=== PATIENT | female | born 1960 | race Caucasian/White ===

== ENCOUNTER 2023-07-06 10:21 | Emergency (ER) | payer OTHER, SELFPAY ==
--- NOTE | ~2023-07-06 | XR_ITS ---
EXAMINATION: XR KNEE, RIGHT CLINICAL INFORMATION: Pain. Injury. COMPARISON: None available. TECHNIQUE: Four views of the right knee. FINDINGS: Bones are osteopenic. Tricompartmental marginal osteophytes with lateral and patellofemoral compartment joint space narrowing. Small joint effusion. Multiple chronic osseous loose bodies are noted both in the anterior and posterior aspects of the joint. A cluster of osseous fragments in the suprapatellar pouch measures 2.1 cm in aggregate and may correspond to a fragmented osteophytes vs. loose bodies. No acute fractures. XR/XR knee RT 3V IMPRESSION: 1. No acute fracture or malalignment. 2. Mild to moderate tricompartmental osteoarthritis, more pronounced in the patellofemoral and lateral compartments. 3. Small joint effusion with multiple osseous loose bodies.
[2023-07-06 10:28] VITALS: BP 153/98; PULSE 93; RESP 18; TEMP 36.6; O2SAT 98; BMI 40.3
--- NOTE | 2023-07-06 10:35 | ED.GENADULT ---
HPI - General Adult General Chief complaint: Extremity Injury, Lower Stated complaint: Leg pain Time Seen by Provider: 07/06/23 10:35 Source: patient and mechanical manager (all interactions with this patient were facilitated by an [facility] Verifier Operator) Mode of arrival: ambulatory Limitations: language barrier (all interactions with this patient were facilitated by an [facility] Verifier Operator) History of Present Illness ED Provider: Miri Osborne PA-C HPI narrative: Patient is a 63 year old assigned female at with a history of osteoarthritis of the right knee presenting to the emergency department today with acute on chronic right knee pain. Patient states that she has known arthritis of the right knee for which she is on celebrex on in [place]. Patient states that she is currently visiting family and does not have her celebrex with her. Patient states that she twisted her knee somewhat getting in the tub and now it is having a flare. Patient denies any head strike, loss of consciousness, dizziness, lightheadedness, abdominal pain, nausea, vomiting, fever, chills, blurry vision, double vision, loss of vision, chest pain, difficulty breathing, shortness of breath, back pain, night sweats, pain with urination, increased urinary frequency, increased urinary urgency, blood in her urine or stool, syncope or a near syncopal episode, bowel incontinence, bladder incontinence, bowel retention, bladder retention, or any other complaints at this time. Relieving factors: none Exacerbating factors: none Associated symptoms: denies other symptoms Treatments prior to arrival: none Related Data Previous Rx's ?Medication ?Instructions ?Recorded celecoxib 200 mg capsule (Celebrex) 200 mg PO BID 2 weeks #28 caps 07/06/23 Allergies Allergy/AdvReac Type Severity Reaction Status Date / Time No Known Allergies Allergy Verified 07/06/23 10:29 Review of Systems Constitutional: Constitutional: Reports no additional constitutional complaints, Denies chills, Denies fever(s) and Denies night sweats Eyes: Eyes: Reports no additional eye complaints, Denies blurry vision, Denies change in vision, Denies diplopia, Denies eye discharge, Denies loss of vision and Denies eye pain ENT: Denies dizziness Cardiovascular: Cardiovascular: Reports no additional cardiovascular complaints, Denies chest pain, Denies lightheadedness, Denies Loss of Consciousness and Denies dyspnea Respiratory: Respiratory: Reports no additional respiratory complaints and Denies dyspnea Gastrointestinal: Gastrointestinal: Reports no additional gastrointestinal complaints, Denies abdominal pain, Denies melena, Denies hematochezia, Denies change in bowel habits and Denies change in stool character Genitourinary: Genitourinary: Denies hematuria, Denies urinary frequency, Denies dysuria, Denies urinary incontinence, Denies urinary hesitancy and Denies urinary urgency Musculoskeletal: Musculoskeletal: Reports no additional musculoskeletal complaints, Denies numbness and Denies tingling Comments: right knee pain Neurologic: Denies dizziness, Denies loss of vision, Denies numbness and Denies tingling Psychiatric: Psychiatric: Reports no additional psychiatric complaints Endocrine: Endocrine: Reports no additional endocrine complaints Hematologic/Lymphatic: Hematologic/Lymphatic: Reports no additional hematologic/lymphatic complaints Allergic/Immunologic: Allergic/Immunologic: Reports no additional allergic/immunologic complaints PMFSH Past Medical History Attestation statement: The following information was validated with the patient. Source: old records reviewed and nursing notes reviewed Social History Social History Advance Directives: No Advance Directives Information Provided: Yes Physical Exam ED Vital Signs: Vital Signs - 24 hr 07/06/23 10:28 07/06/23 12:21 Temperature 98 F 98 F Pulse Rate 93 93 Respiratory Rate 18 18 Blood Pressure 153/98 H 153/98 H Pulse Oximetry 98 98 Oxygen Delivery Method Room Air Room Air BMI result Body Mass Index 40.3 Const General: cooperative, no acute distress, alert and awake Nutritional Appearance: well nourished Orientation/consciousness: patient oriented x3 Limitations: no limitations [facility] Head: Yes normal to inspection and Yes atraumatic Ears: hearing grossly normal bilaterally and external ears normal General nose exam: Normal external nose present, no nasal discharge noted and no epistaxis Face and sinus: Yes normal facial exam, No abrasion and No laceration Mouth: Normal oral and palatal mucosa present, no drooling and no muffled voice Eyes General: appearance normal, both eyes and all related structures Periorbital: periorbital findings normal Eyelids: Yes eyelids normal Conjunctivae: conjunctivae normal Pupils: Equal, round and reactive pupils present EOM: EOMs intact bilaterally Neck Neck: Yes normal visual inspection, Yes full ROM and Yes no lymphadenopathy Chest Chest palpation & inspection: normal inspection of the chest Resp Effort & Inspection: normal respiratory effort and able to speak in complete sentences GI Inspection: Yes normal to inspection Neuro General: patient oriented x3 and moves all extremities Cranial nerves: Yes Equal, round and reactive pupils present Cognition (Neuro): normal cognition Motor exam (neuro): 5/5 motor strength present throughout Sensory Exam: Normal double simultaneous stimulation for sensation Coordination: [id number] test normal Extrem General: Yes normal to inspection, Yes full ROM and Yes capillary refill normal Psych Appearance: grossly normal Mental Status: mental status grossly normal Affect: normal affect Attitude: cooperative Thought process: Normal thought process present Thought content: Normal thought content present Insight: Good insight present (Psych) Medications Administered Discontinued Medications Generic Name Dose Route Start Last Admin Trade Name Freq PRN Reason Stop Dose Admin Ketorolac Tromethamine 15 mg 07/06/23 11:41 07/06/23 12:09 Ketorolac Tromethamine 15 Mg/Ml Vial IM 07/06/23 11:42 15 mg ONCE ONE Administration Medical Decision Making Medical Decision Making MDM Narrative: Patient is a 63 year old assigned female at with a history of OA in the right knee presenting to the emergency department today with acute on chronic right knee pain. Patient's physical exam was unremarkable. Patient's right knee x-ray showed no acute process but did reaffirm the OA. I explained my physical exam findings as well as all test results to the patient. I answered all questions asked by the patient. Patient received IM toradol which she stated helped her pain significantly. I stressed the importance of the patient taking her medication as prescribed. I stressed the importance of the patient following up with her primary care provider and her orthopedist when she returns to [place]. I stressed the importance of the patient returning to the emergency department immediately if her symptoms were to worsen or if she were to develop any dizziness, shortness of breath, difficulty breathing, chest pain, blurry vision, loss of vision, nausea, vomiting, abdominal pain, fever, chills, back pain, or any other complaints. Patient verbalized agreement and understanding with this treatment plan and discharge. Differential Diagnosis Differential Diagnoses: The differential diagnosis associated with the presentation includes Right knee pain Right knee OA Admission/Observation Consideration of admission/observation: Escalation of care including admission/observation considered Patient would have been admitted to the hospital had her work up had any findings where hospital admission was appropriate and her clinical presentation warranted hospital admission. Independent Interpretation I performed an independent interpretation of an: Plain X-Ray Interpretation: My interpretation is in agreement with the radiologist's impression of this imaging study. EXAMINATION: XR KNEE, RIGHT CLINICAL INFORMATION: Pain. Injury. COMPARISON: None available. TECHNIQUE: Four views of the right knee. FINDINGS: Bones are osteopenic. Tricompartmental marginal osteophytes with lateral and patellofemoral compartment joint space narrowing. Small joint effusion. Multiple chronic osseous loose bodies are noted both in the anterior and posterior aspects of the joint. A cluster of osseous fragments in the suprapatellar pouch measures 2.1 cm in aggregate and may correspond to a fragmented osteophytes vs. loose bodies. No acute fractures. XR/XR knee RT 3V IMPRESSION: 1. No acute fracture or malalignment. 2. Mild to moderate tricompartmental osteoarthritis, more pronounced in the patellofemoral and lateral compartments. 3. Small joint effusion with multiple osseous loose bodies. Dictated By: Jordi Sanchez MD Signed By: Electronically signed by Jordi Sanchez MD 07/06/23 1092 Radiology Impression Discussion of test interpretation with radiology: I have reviewed the radiologist's reading. Prescription Management I considered prescription management with: Pain Medication (patient prescribed celebrex) Discharge Plan Discharge Clinical Impression: Osteoarthritis Patient Disposition: Home, Self-Care Instructions: Osteoarthritis (DC) Additional Instructions: Do NOT take your Celebrex until tomorrow. Follow up with your primary care provider and your orthopedic provider back in [place]. Return to the emergency department immediately if your symptoms worsen or if you develop any dizziness, shortness of breath, difficulty breathing, chest pain, blurry vision, loss of vision, nausea, vomiting, abdominal pain, fever, chills, back pain, or any other complaints. Prescriptions: New celecoxib [Celebrex] 200 mg capsule 200 mg PO BID 14 Days Qty: 28 0RF Interventions: ED Discharge Assessment Last Done: 07/06/23 12:21 Discharge Date/Time: 07/06/23 12:22 Print Language: Serbian
[2023-07-06] MEDS: Ketorolac Tromethamine 15 MG/ML VIAL IM (12:09)
[2023-07-06 12:21] VITALS: BP 153/98; PULSE 93; RESP 18; TEMP 36.6; O2SAT 98
== END 2023-07-06 12:22 | disposition home or self-care (01) ==
PROVIDERS: Emergency Provider Emergency Medicine
DX: M17.11 Unilateral primary osteoarthritis, right knee (principal); M25.561 Pain in right knee
CPT/HCPCS: 73562; 96372; 99283; 99284; J1885

== ENCOUNTER 2024-07-17 14:03 | Outpatient (REF) | payer OTHER, SELFPAY | END 2024-07-17 14:04 | disposition home or self-care (01) | LOC: HO.HHCLNP 14:03 | PROVIDERS: Visit Provider Family Medicine | DX: Z12.4 Encounter for screening for malignant neoplasm of cervix (principal) | CPT/HCPCS: 87626; 88175 ==

== ENCOUNTER 2024-08-13 12:02 | Outpatient (REF) | payer OTHER, SELFPAY ==
--- NOTE | ~2024-08-13 | XR_ITS ---
EXAMINATION: XR KNEE 4 OR MORE VIEWS LEFT HISTORY: pain left knee COMPARISON: There are no prior studies available for comparison. FINDINGS: Five views of the left knee are submitted. Osseous mineralization is normal. There is no fracture or dislocation. There is severe osteoarthritis of the patellofemoral compartment and moderate osteoarthritis of the medial and lateral compartments, with joint space narrowing and osteophyte formation. Multiple calcified loose bodies are seen in the suprapatellar recess measuring up to 3.0 cm in size. XR/XR knee LT 4V IMPRESSION: 1. Osteoarthritis of the left knee as described. 2. Multiple loose bodies. Electronically signed by: Thomas Zuniga MD 08/13/2024 01:04 PM EDT
--- OUTSIDE RECORDS SUMMARY | 2024-08-13 12:52 | XMS_ITS | Encounter Summary ---
Author Organization [employer] Address [address] [place] [address] Care Team Providers Care Director Of Medical Education Name Role Phone Levy Rivera MD Primary Care Prov ider Encounter Details Date Type Department Care Team ([facility] st Contact Info) Description 07/27/2024 Results Follow-Up [facility] [address] [place], [place] [phone] Cori Ramos MD [address] [place], [place] [phone] Pap Smear, HPV High Risk with Reflex to Subtypes Social History Tobacco Use Types Packs/Day Years Used Date Smoking Tobacco: Never Smokeless Tobacco: Never Alcohol Use Standard Drinks/Week Comments Never 0 (1 standard drink = 0.6 oz pur e alcohol) Depression Answer Date Recorded Patient Health Questionnaire-9 Score 2 06/06/2024 Patient Health Questionnaire-9 Score 2 06/06/2024 Last PHQ-9: Questionnaire Data Not on file 0 06/06/2024 Housing Stability Answer Date Recorded What is your housing situation today? I have ta avelar 06/06/[address] you li ve. Do you have problems with any of the following? None of the above 06/06/2024 Food Insecurity Answer Date Recorded Within the past 12 months, y ou worried that your food would run out before you got money to buy more: Never True 06/06/2024 Within the past 12 months,th e food you bought just didn't last and you didn't have enough money to get more: Never True Transportation Answer Date Recorded In the past 12 months, has l ack of transportation kept you from medical appts, meetings, work or from getting things needed for daily living? No 06/06/2024 Utilities Answer Date Recorded In the past 12 months, has t he electric, gas, oil or water company threatened to shut off services in your home? No 06/06/2024 Depression Answer Date Recorded Patient Health Questionnaire-2 Score 2 06/06/2024 Internet Access Answer Date Recorded Internet Access Q1 Yes 06/06/2024 Internet Access Q2 Not on file 06/06/2024 Comments No Sex and Gender Information Value Date Recorded Sex Assigned at Female 06/06/2024 12:31 PM EDT Legal Sex Female 10:58 AM EDT Gender Identity Female 06/06/2024 12:31 PM EDT Sexual Orientation Don't know 06/06/2024 12 :32 PM EDT documented as of this encounter Plan of Treatment Upcoming Encounters Date Type Department Care Team (Late st Contact Info) Description 09/10/2024 11:15 AM EDT Office Visit [facility] [address] [place] [address] Levy Rivera MD [address] [place] [address] documented as of this encounter Visit Diagnoses Not on filedocumented in this encounter Additional Health Concerns Assessment Noted Time PHQ-9 Depression Total Score: 2 06/07/19 25 2:18 PM EDT documented as of this encounter Care Teams Director Of Medical Education Relationship Specialty Start Date End Date Levy Rivera MD [address] [place] [address] PCP - General Internal Medicine 06/06/24 documented as of this encounter
== END 2024-08-13 12:03 | disposition home or self-care (01) ==
LOC: HO.XRAY 12:02
PROVIDERS: PCP Internal Medicine; Visit Provider Family Medicine
DX: M25.562 Pain in left knee (principal); G89.29 Other chronic pain
CPT/HCPCS: 73564

== ENCOUNTER → 2024-08-13 12:11 | Outpatient (BNV) | payer OTHER, SELFPAY | PROVIDERS: PCP Internal Medicine; Visit Provider Radiology Diagnostic Radiology | DX: M17.12 Unilateral primary osteoarthritis, left knee (principal); M23.42 Loose body in knee, left knee | CPT/HCPCS: 73564 ==

== ENCOUNTER 2024-08-23 14:39 | Outpatient (AMB) | payer OTHER, SELFPAY ==
--- NOTE | 2024-08-23 14:40 | A.OFFVIS_ITS ---
Vital Signs 08/23/24 14:41 Height 5 ft 2 in Weight 220 lb BMI 40.2 Intake Visit Reasons: Bilateral knee pains Intake Note: Kate is a 64 year old female who presents with complaints of progressively worsening bilateral knee pains. She describes her pains as sharp and severe in nature. She has had cortisone injections in the past. The most recent cortisone injection gave her minimal relief. She also had a viscosupplementation injection given into her knees while in [place]. She states that she got very good relief from the viscosupplementation injection. She has failed the last 3 months of conservative treatment which has included Tylenol, anti-inflammatory medicines, a home exercise program and physical therapy exercises. She wishes to hold off on total knee replacement surgery for as long as possible. Senior Electrical Design Engineer Required: Yes Senior Electrical Design Engineer Language: University Relations Director Services: Senior Electrical Design Engineer Present Senior Electrical Design Engineer Name: Efren SINDY/JUAN JOSE Allergies No Known Allergies Allergy (Verified 08/23/24 14:41) Medication List - Last Reconciled 08/23/24 by Alonso Cohen MD celecoxib (Celebrex) 200 mg PO BID 2 weeks Physical Exam Vital Signs: BMI result Body Mass Index 40.2 Const Other: Well-nourished well-developed very friendly female awake alert and oriented x3 in no acute distress Extrem Other: Bilateral lower extremity examination shows good capillary refill, no skin lesions noted, normal sensation light touch Bilateral knee examination shows minimal effusions, palpable crepitus with range of motion, pain with range of motion, no instability Results Reviewed Results Reviewed: X-rays of the patient's left knee show moderate to severe joint space narrowing, subchondral sclerosis, multiple loose bodies, no acute bony abnormalities Assessment & Plan Assessment & Plan (1) Osteoarthritis of left knee: Code(s): M17.12 - Unilateral primary osteoarthritis, left knee Category: Medical (2) Osteoarthritis of right knee: Code(s): M17.11 - Unilateral primary osteoarthritis, right knee Category: Medical Plan Ms. Amy Belcher presents with bilateral knee pains due to osteoarthritis. I had a lengthy discussion with the patient regarding the treatment options. She wishes to hold off on total knee replacement surgery for as long as possible. I agree with this plan. I will see if her insurance company will cover a viscosupplementation injection, such as Durolane, for both of her knees. I will see her back once the injections are available. Feel free to call me at any time should questions regarding her orthopedic management arise. Thank you very much for asking me to see this very friendly patient. I spent 22 minutes in reviewing the patient's records and imaging studies, seeing the patient and documenting in the medical record. Coding Level of Care Code New Pt Level 3 (03345) Complex EM visit Add On G2211 Diagnoses Osteoarthritis of left knee M17.12 Osteoarthritis of right knee M17.11
[2024-08-23 14:41] VITALS: BMI 40.2
--- OUTSIDE RECORDS SUMMARY | 2024-08-23 15:24 | XMS_ITS | Encounter Summary ---
Author Organization [employer] Address [address] [place] [address] Care Team Providers Care Desktop Publishing Specialist Name Role Phone Levy Rivera MD Primary Care Prov ider Encounter Details Date Type Department Care Team ([facility] st Contact Info) Description 07/27/2024 Results Follow-Up [facility] [address] [place], [place] [phone] Cori Ramos MD [address] [place], [place] [phone] Pap Smear, HPV High Risk with Reflex [...] Description 09/10/2024 11:15 AM EDT Office Visit [facility] [address] [place] [address] Levy Rivera MD [address] [place] [address] 11/06/2024 11:15 AM EDT Office Visit [facility] [address] [place] [address] Tarka, Amara, OD [address] [place] [address] documented as of this encounter Visit Diagnoses Not on filedocumented in this encounter Additional Health Concerns Assessment Noted Time PHQ-9 Depression Total Score: 2 06/07/19 25 2:18 PM EDT documented as of this encounter Care Teams Desktop Publishing Specialist Relationship Specialty Start Date End Date Levy Rivera MD [address] [place] [address] PCP - General Internal Medicine 06/06/24 documented as of this encounter
== END 2024-08-23 14:53 | disposition home or self-care (01) ==
LOC: HO.HOS 14:40
PROVIDERS: Visit Provider Orthopaedic Surgery
DX: M17.0 Bilateral primary osteoarthritis of knee (principal)
CPT/HCPCS: 99203; G2211

== ENCOUNTER 2024-08-24 09:04 | Outpatient (RCR) | payer OTHER, SELFPAY | END 2024-09-13 10:33 | disposition home or self-care (01) | LOC: HO.PT 09:04 | PROVIDERS: PCP Internal Medicine; Visit Provider Internal Medicine | DX: M25.552 Pain in left hip (principal); G89.29 Other chronic pain | CPT/HCPCS: 97162 ==

== ENCOUNTER 2024-08-31 10:03 | Outpatient (REF) | payer OTHER, SELFPAY ==
--- OUTSIDE RECORDS SUMMARY | 2024-08-31 10:20 | XMS_ITS | Encounter Summary ---
Author Organization [employer] Address [address] [place] [address] Care Team Providers Care Nuclear Security Officer Name Role Phone Levy Rivera MD Primary Care Prov ider Encounter Details Date Type Department Care Team ([facility] st Contact Info) Description 07/27/2024 Results Follow-Up [facility] [address] [place], [place] [phone] Cori Ramos MD [address] [place], [place] [phone] Pap Smear, HPV High Risk with Reflex [...] your housing situation today? I have ta avealr 06/06/[address] you li [...] Description 09/10/2024 11:15 AM EDT Office Visit [facility] [address] [place] [address] Levy Rivera MD [address] [place] [address] 11/06/2024 11:15 AM EDT Office Visit [facility] [address] [place] [address] Tarka, Amara, OD [address] [place] [address] documented as of this encounter Visit Diagnoses Not on filedocumented in this encounter Additional Health Concerns Assessment Noted Time PHQ-9 Depression Total Score: 2 06/07/19 25 2:18 PM EDT documented as of this encounter Care Teams Nuclear Security Officer Relationship Specialty Start Date End Date Levy Rivera MD [address] [place] [address] PCP - General Internal Medicine 06/06/24 documented as of this encounter
[2024-08-31 13:55] LABS: MANUAL DIFF FLAG NO
[2024-08-31 14:07] LABS: Hematocrit 42.2 % (37.0-47.0); Hemoglobin 14.2 g/dl (12.0-16.0); Imm Gran Abs Auto 0.02 X10*3/uL (0.00-0.03); Imm Gran Pct Auto 0.3 % (0.0-0.4); Lymphocytes Absolute Auto 1.7 X10*3/uL (1.2-4.9); Mean Corpuscular HGB Conc 33.6 g/dl (31.0-35.0); Mean Corpuscular Hemoglobin 29.5 pg (27.0-33.0); Mean Corpuscular Volume 87.7 fL (80.0-98.0); NRBC Abs Auto 0.000 X10*3/uL (0.0-0.012); NRBC Pct Auto 0.0 /100WBC (0.0-0.2); Platelet Count 382 X10*3/uL (160-400); Red Blood Count 4.81 X10*6/uL (4.20-5.50); White Blood Count 6.8 X10*3/uL (4.8-10.8)
[2024-08-31 14:08] LABS: Hemoglobin A1C 152.0172 umol/L; Total Hemoglobin (HGBA1C) 3651.9211 umol/L
[2024-08-31 14:31] LABS: Alanine Aminotransferase 46 U/L (0-31); Albumin Level 4.0 g/dL (3.5-5.0); Alkaline Phosphatase 110 U/L (39-117); Anion Gap 10 (12-20); Aspartate Amino Transferase 43 U/L (5-31); Blood Urea Nitrogen 25 mg/dL (9-16); Calcium 9.7 mg/dL (8.4-10.2); Carbon Dioxide 27 mmol/L (22-29); Chloride 107 mmol/L (96-108); Cholesterol 137 mg/dL (<200); Estimated Glomerular Filt Rate > 60; HDL Cholesterol 49 mg/dL (>40); Potassium 3.9 mmol/L (3.3-5.1); Sodium 140 mmol/L (135-145); Total Protein 7.1 g/dL (6.5-8.0); Triglycerides 96 mg/dL (<150)
[2024-08-31 14:37] LABS: HIV Num 1 0.06 S/CO (0.00-0.99); ~HepC Num1 0.13 S/CO (0.00-0.79); ~Hepatitis C Antibody Nonreactive (Nonreactive)
[2024-08-31 15:23] LABS: Free T4 (Free Thyroxine) 1.41 ng/dL (0.71-1.85)
== END 2024-08-31 10:04 | disposition home or self-care (01) ==
LOC: HO.CHCLDS 10:03
PROVIDERS: Visit Provider Internal Medicine
DX: Z00.00 Encounter for general adult medical examination without abnormal findings (principal); Z11.59 Encounter for screening for other viral diseases; Z11.4 Encounter for screening for human immunodeficiency virus [HIV]
CPT/HCPCS: 36415; 80053; 80061; 83036; 84439; 84443; 85025; 86803; 87389

== ENCOUNTER 2024-10-04 08:28 | Outpatient (AMB) | payer OTHER, SELFPAY ==
--- NOTE | 2024-10-04 08:40 | MHC.OFFVIS ---
Intake Visit Reasons: Inj- Vito knee knee Euflexxa #1 Intake Note: Kate is a 64 year old female who presents today for an injection in her bilateral knee, Euflexxa injection #1. She describes her knee pains as sharp in nature. She has failed the last 3 months of conservative treatment. Allergies No Known Allergies Allergy (Verified 08/23/24 14:41) Medication List - Last Reconciled 10/04/24 by Alonso Cohen MD celecoxib (Celebrex) 200 mg PO BID 2 weeks Physical Exam Const Other: Well-nourished well-developed very friendly female awake alert and oriented x3 in no acute distress Extrem Other: Bilateral knee examination shows minimal effusions, palpable crepitus with range of motion, pain with range of motion, no instability Office Procedures AMB Joint Injection/Aspiration Joint Injection/Aspiration Primary Site: right knee Injected: 20 mg of (Euflexxa viscosupplementation) and 1% plain lidocaine Procedure: The patient tolerated the procedure well Coding 35653 - Large joint Procedure code (CPT) selection complete AMB Joint Injection/Aspiration Joint Injection/Aspiration Primary Site: left knee Prep: site was prepped using aseptic technique Injected: 20 mg of (Euflexxa viscosupplementation) and 1% plain lidocaine Procedure: The patient tolerated the procedure well Coding 68052 - Large joint Procedure code (CPT) selection complete Results Reviewed Results Reviewed: X-rays of the patient's bilateral knees taken previously show joint space narrowing, subchondral sclerosis, no acute bony abnormalities Assessment & Plan Assessment & Plan (1) Osteoarthritis of left knee: Code(s): M17.12 - Unilateral primary osteoarthritis, left knee Category: Medical (2) Osteoarthritis of right knee: Code(s): M17.11 - Unilateral primary osteoarthritis, right knee Category: Medical Plan Kate presents with bilateral knee pains due to osteoarthritis. The risks and benefits of bilateral knee Euflexxa injections were discussed at length with the patient. The patient wished to proceed. She tolerated the 1st set of injections well. She will follow up next week as scheduled. Feel free to call me at any time should questions regarding her orthopedic management arise. I spent 22 minutes in reviewing the patient's records and imaging studies, seeing the patient and documenting in the medical record. Orders: Orders AMB Joint Injection/Aspiration Today M17.11 - Unilateral primary osteoarthritis, right knee AMB Joint Injection/Aspiration Today M17.12 - Unilateral primary osteoarthritis, left knee Coding Level of Care Code Est Pt Level 3 (72810) Complex EM visit Add On G2211 Diagnoses Osteoarthritis of left knee M17.12 Osteoarthritis of right knee M17.11 CPT Codes Coding - 55780 Large joint: 36275 - Large joint ([id number]) Coding - 94360 Large joint: 82466 - Large joint ([id number])
--- OUTSIDE RECORDS SUMMARY | 2024-10-04 09:06 | XMS_ITS | Encounter Summary ---
Author Organization [employer] Address [address] [place] [address] Care Team Providers Care Steam Presser Name Role Phone Levy Rivera MD Primary Care Prov ider Reason for Visit * Reason Onset Date Comments Request For Order(s) 09/24/2024 Encounter Details Date Type Department Care Team ([facility] st Contact Info) Description 09/24/2024 Telephone [facility] [address] [place] [id number] Levy Rivera MD [address] [place] [phone] Request For Order(s) Social History Tobacco Use Types Packs/Day Years [...] PM EDT documented as of this encounter Miscellaneous Notes * Telephone Encounter - Charis Banda - 09/24/2024 11:23 AM EDT Tc from pt stating she was advised by PCP that an order for a sonogram would be placed. Pt requesting the order. Contact pt at [phone] Need restaurant and bar manager documented in this encounter Plan of Treatment Upcoming Encounters Date Type Department Care Team (Late st Contact Info) Description 11/06/2024 11:15 AM EDT Office Visit [facility] OPTOMETRY [address] [place] [address] Amara Busch, OD [address] [place] [address] documented as of this encounter Visit Diagnoses Not on filedocumented in this encounter Additional Health Concerns Assessment Noted Time PHQ-9 Depression Total Score: 2 06/07/19 2:18 PM EDT documented as of this encounter Care Teams Steam Presser Relationship Specialty Start Date End Date Levy Rivera MD [address] [place] [address] PCP - General Internal Medicine 06/06/24 documented as of this encounter
--- OUTSIDE RECORDS SUMMARY | 2024-10-04 09:06 | XMS_ITS | Clinical Summary ---
Author Organization [employer] Address [address] [place] [address] Care Team Providers Care Trade Specialist Name Role Phone Levy Rivera MD Primary Care Prov ider Allergies No known active allergies Medications losartan-hydro CHLOROthiazide (Hyzaar) 50-12.5 MG tablet Take 1 tablet by mouth Once per day. 90 tablet 3 5 06/07/19 26 Active Blood Pressure kit 1 kit Once per day. 1 kit 5 Active albuterol 108 (90 Base) MCG/ACT inhaler Inhale 2 puffs every 6 (six) hours if needed for wheezing. Active celecoxib (CeleBREX) 200 MG capsule Take 1 capsule (200 mg) by mouth 2 times daily. 60 capsule 2 5 Active levothyroxine (Synthroid) 125 MCG tablet Take 1 tablet (125 mcg) by mouth before breakfast. 30 tablet 11 5 09/11/19 26 Active levothyroxine (Synthroid) 137 MCG tablet Take 137 mcg by mouth before breakfast. 30 tablet 11 5 09/11/19 25 Discontinued Active Problems Problem Noted Date Diagnosed Date Chronic pain of left knee 08/06/2024 Assessment & Plan (08/06/2024 8:18 AM EDT): Patient has a known history of osteoarthritis and patellofemoral syndrome. The condition has worsened recently, with the patient reporting increased knee pain. Physical examination revealed positive joint aches, effusion, and positive apprehension tests. The patellofemoral syndrome is described as the patella scratching the femur like a cheese grater, causing inflammation and pain, especially when going down stairs. This is noted to be a chronic condition. The patient reports hip pain as well. Previous interventions include injections and physiotherapy, which she found most helpful. An orthopedist previously recommended surgery, warning of potential worsening without it. A tomography was performed approximately a year ago, showing fluid in the joint (small effusion). Plan: - Increase Celebrex dosage to 200 mg BID (maximum 400 mg daily) - Order new x-ray of the knee - Refer to physical therapy - Refer to orthopedics - Recommend weight loss (even 10 pounds) to reduce knee pain - Follow up after orthopedic consultation Cervical cancer screening 07/17/2024 Assessment & Plan (07/17/2024 9:24 AM EDT): 64 y.o. here for cervical cancer screening. Will continue monitoring following ASCCP guidelines. Encounter for medical examination to establish c are 06/06/2024 Assessment & Plan (06/06/2024 2:45 PM EDT): Last pcp visit 6 months ago ER: - Hospitalization: gallbladder/appendix/sterilization PMHx: hypothyroidism, htn, OA Pshx: cholecystectomy, 1979, appendectomy 1974, tubal ligation 1983 Allergies: seafood Meds: levothyroxine 137mcg, losartan/hctz 50mg/12.5mg A0 Menarche 13yrs LMP: 2012 Screening colon cancer done 2018 2 polyps removed due in 10 years Mammogram: due Pap smear: due Primary hypertension 06/06/2024 Assessment & Plan (09/10/2024 12:43 PM EDT): Controlled, keep low sodium diet and exercise as tolerated, keep current therapy, follow up in 3 months with bp log Assessment & Plan (06/06/2024 2:54 PM EDT): She is on hyzaar 50/12.5mg, will send a bp monitor, keep bp log, target <140/90, keep low sodium diet and exercise as tolerated, new labs will be ordered Acquired hypothyroidism 06/06/2024 Assessment & Plan (09/10/2024 12:43 PM EDT): Will decrease levo dose, to 125mcg, new labs to be done in 6 weeks Assessment & Plan (06/06/2024 2:54 PM EDT): On levothyroxine 137mcg, new labs will be ordered for guidance of therapy Mild intermittent asthma without complication Assessment & Plan (06/06/2024 2:55 PM EDT): No recent er visit due to exacerbation, will follow up in office Screening for colon cancer 06/06/2024 Assessment & Plan (06/06/2024 2:56 PM EDT): Done on 2018 refers due in 10yr, told to bring results for next appointment Encounter for screening mamm ogram for malignant neoplasm of breast 06/06/2024 Encounters Date Type Department Care Team Description 09/24/[address] [phone] Levy Rivera MD Request For Order(s) 09/10/2024 11:15 AM EDT Office Visit [facility] [address] [place], [place] [phone] Levy Rivera MD Primary hypertension (Primary Dx); Acquired hypothyroidism 09/10/2024 Travel 09/03/2024 Patient Outreach [address] [address] Levy Rivera MD Pre-visit Planning (SDOH screening completed on 06/06/24) 08/31/2024 Results Follow-Up [address] [address] Nery Nolan ANP CBC auto differential, Comprehensive Metabolic Panel, Lipid Panel, Standard, Additional followed-up results: 4 08/31/2024 Orders Only [facility] [address] [place], [place] [phone] Levy Rivera MD 08/14/2024 Results Follow-Up [facility] [address] [place], [place] [phone] Cori Ramos MD XR Knee 4+ Views Left 08/02/2024 2:30 PM EDT Office Visit [facility] [address] [place], [place] [phone] Cori Ramos MD Chronic pain of left knee (Primary Dx) 08/02/2024 Travel 08/02/[address] [facility] [address] [place], [place] [phone] Levy Rivera MD Nurse Triage 07/27/2024 Results Follow-Up [facility] [address] [place], [place] [phone] Cori Ramos MD Pap Smear, HPV High Risk with Reflex to Subtypes 07/23/[address] [facility] [address] [place], [place] [phone] Levy Rivera MD Referral 07/17/2024 9:00 AM EDT Procedure Visit [facility] [address] [place], [place] [phone] Cori Ramos MD Colon cancer screening (Primary Dx); Encounter for immunization; Cervical cancer screening 07/17/2024 Travel from Last 3 Months Immunizations Immunization Administration Dates Next Due Tdap 07/17/2024 Family History Medical History Relation Name Comments Alcohol abuse Father Bradycardia Mother Diabetes Mother Hypertension Mother Cancer Neg Hx Relation Name Status Comments Father Mother Social History Tobacco Use Types Packs/Day Years Used Date Smoking Tobacco: Never Smokeless Tobacco: Never Tobacco Cessation:Counseling Given: Not Answered Alcohol Use Standard Drinks/Week Comments Never 0 [...] Don't know 06/06/2024 12 :32 PM EDT Last Filed Vital Signs Vital Sign Reading Time Taken Comments Blood Pressure 118/74 09/10/2024 11:19 AM EDT Pulse 76 09/10/2024 11:19 AM EDT Temperature 36.4 C (97.6 F) 09/10/2024 11:19 AM EDT Respiratory Rate 20 09/10/2024 11:19 AM EDT Oxygen Saturation 98% 08/02/2024 2:05 PM EDT Inhaled Oxygen Concentration - - Weight 101 kg (222 lb) 09/10/2024 11:19 AM EDT Height 154.9 cm (5' 1 ) 09/10/2024 11:19 AM EDT Body Mass Index 41.95 09/10/2024 11:19 AM EDT Plan of Treatment Upcoming Encounters Date Type Department Care Team (Late st Contact Info) Description 11/06/2024 11:15 AM EDT Office Visit [facility] [address] [place], [place] [phone] Amara Busch, OD [address] [place] [address] Health Maintenance Due Date Last Done Comments CT Colonography 1960 Colonoscopy 1960 Colorectal Cancer Screening 1960 FIT DNA/Cologuard 1960 FIT 1960 FOBT 1960 Sigmoidoscopy 1960 Disability Screening 1960 Mammogram 2001 Zoster Vaccines (1 of 2) 2011 RSV Patients and Patients Aged 60 years or older (1 - Risk 60-74 years 1-dose series) 2021 COVID-19 Vaccine (1 - 2023-2 5 season) 2023 Influenza Vaccine (#1) 2024 Alcohol/Substance Use Screening 06/06/2025 06/06/2024 Depression Screening 06/06/2025 06/06/2024, 06/06/2024 SDOH Screening 06/06/2025 06/06/2024 Pneumococcal Vaccine: 50+ Years (1 of 2 - PCV) 07/17/2025 Postponed from 01/08 (Patient Refused) Tobacco Screening 08/02/2025 08/02/2024 Diabetes: Hemoglobin A1C 08/31/2025 08/31/2024 Pap Smear 07/18/2027 07/17/2024 Cervical Cancer Screening 07/17/2029 HPV/Cotest 07/17/2029 07/17/2024 Lipid Panel 08/31/2029 08/31/2024 DTaP/Tdap/Td Vaccines (2 - T d or Tdap) 07/17/2034 07/17/2024 HIV Screening Completed 08/31/2024 Hepatitis C Screening Completed 08/31/2024 HIB Vaccines Aged Out No longer eligi ble based on patient's age to complete this topic HPV Vaccines Aged Out No longer eligi ble based on patient's age to complete this topic Hepatitis A Vaccines Aged Out No long er eligible based on patient's age to complete this topic Hepatitis B Vaccines Aged Out No long er eligible based on patient's age to complete this topic IPV Vaccines Aged Out No longer eligi ble based on patient's age to complete this topic Meningococcal B Vaccine Aged Out No l onger eligible based on patient's age to complete this topic Meningococcal Vaccine Aged Out No kelton kellie eligible based on patient's age to complete this topic RSV under 20 months Aged Out No longe r eligible based on patient's age to complete this topic Rotavirus Vaccines Aged Out No longer eligible based on patient's age to complete this topic Procedures Procedure Name Priority Date/Time Associated Diagnosis Comments T4, FREE Routine 08/31/2024 10:08 AM EDT HEPATITIS C AB W/REFL TO HCV RNA, QN, PCR Routine 08/31/2024 10:08 AM EDT Encounter for medical examination to establish care HIV 1/2 ANTIGEN/ANTIBODY, FOURTH GENERATION W/RFL Routine 08/31/2024 10:08 AM EDT Encounter for medical examination to establish care HEMOGLOBIN A1C Routine 08/31/2024 10:08 AM EDT Encounter for medical examination to establish care TSH W/REFLEX TO FT4 Routine 08/31/2024 1 0:08 AM EDT Encounter for medical examination to establish care LIPID PANEL, STANDARD Routine 08/31/2024 10:08 AM EDT Encounter for medical examination to establish care COMPREHENSIVE METABOLIC PANEL Routine 08/31/2024 10:08 AM EDT Encounter for medical examination to establish care CBC WITH AUTO DIFFERENTIAL Routine 08/31/2024 10:08 AM EDT Encounter for medical examination to establish care XR KNEE 4+ VIEWS LEFT Routine 08/13/2024 12:15 PM EDT Chronic pain of left knee PAP SMEAR Routine 07/17/2024 9:30 AM EDT Cervical cancer screening HPV DNA, LOW/HIGH RISK Routine 9:30 AM EDT Cervical cancer screening from Last 3 Months Results * (ABNORMAL) TSH W/Reflex to FT4 (08/31/2024 10:08 AM EDT) TSH reflex Free T4 <0.01(L) 0.32 - 4.0 uIU/mL [facility] Blood Venous blood specimen / Unknown 08/31/2024 10:08 AM EDT 08/31/2024 1:50 PM EDT us Levy Mckinley MD LAB BLOOD ORDERABL ES Final Result [facility] [address] [place] [phone] * (ABNORMAL) CBC auto differential (08/31/2024 10:08 AM EDT) White Blood Count 6.8 4.8 - 10.8 X10*3/uL [facility] Red Blood Count 4.81 4.20 - 5.50 X10*6/uL [facility] Hemoglobin 14.2 12.0 - 16.0 g/dl [facility] Hematocrit 42.2 37.0 - 47.0 % [facility] Mean Corpuscular Volume 87.7 80.0 - 98.0 fL [facility] Mean Corpuscular Hemoglobin 29.5 27.0 - 33.0 pg [facility] Mean Corpuscular HGB Conc 33.6 31.0 - 35.0 g/dl [facility] Red Cell Distribution Width 12.5 11.0 - 16.0 % [facility] Platelet Count 382 160 - 400 X10*3/uL [facility] Mean Platelet Volume 9.9 9.4 - 12.3 fL [facility] Neutrophils Percent Auto 53.7 45 - 73 % [facility] Imm Gran Pct Auto 0.3 0.0 - 0.4 % [facility] Lymphocytes Percent Auto 25.0 20 - 40 % [facility] Monocytes Percent Auto 14.7(H) 2 - 11 % [facility] Eosinophils Percent Auto 5.6(H) 0 - 4 % [facility] Basophils Percent Auto 0.7 0 - 2 % [facility] NRBC Pct Auto 0.0 0.0 - 0.2 /100WBC [facility] Neutrophils Absolute Auto 3.6 2.0 - 8.3 x10*3/uL [facility] Imm Gran Abs Auto 0.02 0.00 - 0.03 X10*3/uL [facility] Lymphocytes Absolute Auto 1.7 1.2 - 4.9 X10*3/uL [facility] Monocytes Absolute Auto 1.0 0.1 - 1.2 X10*3/uL [facility] Eosinophils Absolute Auto 0.4 0.0 - 0.4 X10*3/uL [facility] Basophils Absolute Auto 0.1 0.0 - 0.2 X10*3/uL [facility] NRBC Abs Auto 0.000 0.0 - 0.012 X10*3/uL [facility] Blood Venous blood specimen / Unknown 08/31/2024 10:08 AM EDT 08/31/2024 1:50 PM EDT Levy Mckinley MD LAB BLOOD ORDERABL ES Final Result Performing Organization Address City/[facility] Co de Phone Number [facility] [address] [place] [phone] * Hepatitis C Antibody with Reflex to HCV, RNA, Quantitative, Real-Time PCR (08/31/2024 10:08 AM EDT) Pathologist [facility] Hepatitis C Antibody Nonreactive Nonreactive [facility] Comment:Antibodies to HCV no t detected; does not exclude early acuteHCV infection. Blood Venous blood specimen / Unknown 08/31/2024 10:08 AM EDT 08/31/2024 1:50 PM EDT Levy Mckinley MD LAB BLOOD ORDERABL ES Final Result Performing Organization Address [facility] Co de Phone Number [facility] [address] [place] [phone] * HIV-1/2 Antigen and Antibodies, Fourth Generation, with Reflexes (08/31/2024 10:08 AM EDT) Pathologist [facility] HIV AB/AG Nonreactive Nonreactive [facility] Comment:HIV-1 p24 Ag and/or HIV-1/HIV-2 Ab not detected.A test result that is nonreactive does not exclude thepossibility of exposure to or infection with HIV-1 and/orHIV-2. Nonreactive results in this assay for individualswith prior exposure to HIV-1 and/or HIV-2 may be due toantigen and antibody levels that are below the limit ofdetection of this assay.The [employer] HIV Ag/Ab Combo assay result andsupplemental assay results should be interpreted inconjunction with the patient's clinical presentation,history and other laboratory results. If the results areinconsistent with clinical evidence, additional testing issuggested to confirm the result. Blood Venous blood specimen / Unknown 08/31/2024 10:08 AM EDT 08/31/2024 1:50 PM EDT Levy Mckniley MD LAB BLOOD ORDERABL ES Final Result Performing Organization Address City/[facility]/ZIP Co de Phone Number [facility] [address] [place] [phone] * T4, Free (08/31/2024 10:08 AM EDT) [facility] Free T4 (Free Thyroxine) 1.41 0.71 - 1.85 ng/dL [facility] 08/31/2024 10:0 8 AM EDT 08/31/2024 1:50 PM EDT Levy Mckinley MD LAB BLOOD ORDERABL ES Final Result Performing Organization Address City/[facility] Co de Phone Number [facility] [address] [place] [phone] * Hemoglobin A1c (08/31/2024 10:08 AM EDT) Pathologist [facility] Hemoglobin A1c 6.0 <6.0 % [facility] Comment:Hemoglobin A1C Refer ence Range Adults: 4.8 - 6.0 % Non diabetic: < 6.0 % Goal: < 7.0 %Additional Action Suggested: > 8.0 %Note: Hemoglobin A1c results are invalid for patients with abnormal amounts of HbF. Blood transfusions may impact the HbA1c concentration in the patient sample. Estimated Average Glucose 126 mg/dL [facility] Comment:eAG = Estimated ave rage glucose which is %A1C expressed asaverage glucose, using the formula of the Q4F-PxkhiuePkyxnfw Glucose study (ADAG), Diabetes Care, Vol.31,#8,2007 Blood Venous blood specimen / Unknown 08/31/2024 10:08 AM EDT 08/31/2024 1:50 PM EDT us Levy Mckinley MD LAB BLOOD ORDERABL ES Final Result [facility] [address] [place] [phone] * Lipid Panel, Standard (08/31/2024 10:08 AM EDT) Triglycerides 96 <150 mg/dL [facility] Comment:Desirable Triglyceri de: less than 150 mg/dLBorderline High Triglyceride 150-199 mg/dLHigh Triglyceride: 200-499 mg/dLVery High Triglyceride: greater than or equal to 5OO mg/dL Cholesterol 137 <200 mg/dL [facility] Comment:Desirable Cholestero l: less than 200 mg/dLBorderline High Cholesterol: 200-239 mg/dLHigh Cholesterol: greater than 239 mg/dL LDL Cholesterol Calculated 69 <100 mg/dL [facility] Comment:Desirable LDL: less than 100 mg/dLNear Optimal/Above Optimal LDL: 110- 129 mg/dLBorderline High LDL: 130-159 mg/dLHigh LDL: 160-189 mg/dLVery High LDL: greater than or equal to 190 mg/dL HDL Cholesterol 49 >40 mg/dL [facility] Comment:Desirable HDL: great er than 40 mg/dL Note: This HDL assay may give artificially low results in patients with liver disease. Blood Venous blood specimen / Unknown 08/31/2024 10:08 AM EDT 08/31/2024 1:50 PM EDT us Levy Mckinley MD LAB BLOOD ORDERABL ES Final Result [facility] [address] [place] [phone] * (ABNORMAL) Comprehensive Metabolic Panel (08/31/2024 10:08 AM EDT) Sodium 140 135 - 145 mmol/L [facility] Potassium 3.9 3.3 - 5.1 mmol/L [facility] Chloride 107 96 - 108 mmol/L [facility] Carbon Dioxide 27 22 - 29 mmol/L [facility] Anion Gap 10(L) 12 - 20 [facility] Urea Nitrogen (BUN) 25(H) 9 - 16 mg/dL [facility] Creatinine, Serum 0.71 0.5 - 1.4 mg/dL [facility] Estimated Glomerular Filt Rate >60 [facility] Comment:Chronic Kidney Disea se: Estimated GFR < 60 mL/min/1.59a2Htpmrv Kidney Disease: Estimated GFR < 15 mL/min/1.73m2 Glucose 115 60 - 115 mg/dL [facility] Calcium 9.7 8.4 - 10.2 mg/dL [facility] Bilirubin, Total 0.4 0.0 - 1.0 mg/dL [facility] Aspartate Amino Transferase 43(H) 5 - 31 U/L [facility] Alanine Aminotransferase 46(H) 0 - 31 U/L [facility] Total Protein 7.1 6.5 - 8.0 g/dL [facility] Albumin Level 4.0 3.5 - 5.0 g/dL [facility] Alkaline Phosphatase 110 39 - 117 U/L [facility] Blood Venous blood specimen / Unknown 08/31/2024 10:08 AM EDT 08/31/2024 1:50 PM EDT us Levy Mckinley MD LAB BLOOD ORDERABL ES Final Result [facility] [address] [place] [phone] * XR Knee 4+ Views Left (08/13/2024 12:15 PM EDT) Anatomical Region Laterality Modality Lower Extremities, Knee Left Radiogra phic Imaging 08/13/2024 12:1 5 PM EDT Narrative 08/13/2024 1:06 PM EDT [address] [address] XRay Report Signed Patient: Kate Hutchison MR#: [id number] : 1960 Acct:[id number] Age/Sex: 64 / F ADM Date: 08/13/24 Loc: HO.XRAY Attending Dr: Cori Ramos MD Ordering Physician: Cori Ramos MD Date of Service: 08/13/24 Procedure(s): XR knee LT 4V Accession Number(s): [id number] cc: Levy Rivera MD; Cori Ramos MD EXAMINATION: XR KNEE 4 OR MORE VIEWS LEFT HISTORY: pain left knee COMPARISON: There are no prior studies available for comparison. FINDINGS: Five views of the left knee are submitted. Osseous mineralization is normal. There is no fracture or dislocation. There is severe osteoarthritis of the patellofemoral compartment and moderate osteoarthritis of the medial and lateral compartments, with joint space narrowing and osteophyte formation. Multiple calcified loose bodies are seen in the suprapatellar recess measuring up to 3.0 cm in size. XR/XR knee LT 4V IMPRESSION: 1. Osteoarthritis of the left knee as described. 2. Multiple loose bodies. Electronically signed by: Thomas Zuniga MD 08/13/2024 01:04 PM EDT Dictated By: Thomas Zuniga MD Signed By: <Electronically signed by Thomas Zuniga MD in OV> 08/13/24 1304 DD/ 1215 TD/TT: 08/13/24 1230 Tool Programmer: Procedure Note Donotuseinterpreter, Image - 08/13/[address] [address] XRay Report Signed Patient: Kate HutchisonMR#: [id number] : 1960cct:[id number] Age/Sex: 64 / FADM Date: 08/13/24 Loc: HO.[place] Attending Dr: Cori Ramos MD Ordering Physician: Cori Ramos MD Date of Service: 08/13/24 Procedure(s): XR knee LT 4V Accession Number(s): [id number] cc: Levy Rivera MD; Cori Ramos MD EXAMINATION: XR KNEE 4 OR MORE VIEWS LEFT HISTORY: pain left knee COMPARISON: There are no prior studies available for comparison. FINDINGS: Five views of the left knee are submitted. Osseous mineralization is normal. There is no fracture or dislocation. There is severe osteoarthritis of the patellofemoral compartment and moderate osteoarthritis of the medial and lateral compartments, with joint space narrowing and osteophyte formation. Multiple calcified loose bodies are seen in the suprapatellar recess measuring up to 3.0 cm in size. XR/XR knee LT 4V IMPRESSION: 1. Osteoarthritis of the left knee as described. 2. Multiple loose bodies. Electronically signed by: Thomas Zuniga MD 08/13/2024 01:04 PM EDT Dictated By: Thomas Zuniga MD Signed By: <Electronically signed by Thomas Zuniga MD in OV> 08/13/24 1304 DD/ 1215 TD/TT: 08/13/24 1230 Tool Programmer: us Cori Ramos MD IMG XR PROCEDURES Final Resul t * HPV High Risk with Reflex to Subtypes (07/17/2024 9:30 AM EDT) HPV High Risk Negative Negative [facility] HPV Genotype 16 Negative Negative [facility] HPV Genotype 18 Negative Negative [facility] Comment:HPV testing performe d at [facility] (CLIA#[id number]), [address] [place] [phone].Testing for HPV was performed using the [employer] K[employer]VIN 6800system. The presence of HPV in the female genital tract isassociated with a number of diseases, including cervicalcarcinoma. The HPV DNA high risk pool tests for HPV 31, 33,35, 39, 45, 51, 52, 56, 58, 59, 66 and 68. The testing forHPV 16 and 18 genotypes has also been performed. A positiveresult indicates detection of nucleic acid sequences fromone or more subtypes, whereas a negative result indicatessuch sequences were not detected. Pap Vial 07/17/2024 9:30 AM EDT 07/17/2024 2:19 PM EDT us Cori Ramos MD LAB BLOOD ORDERABLES Final Re sult [facility] [address] [place] [phone] * Pap Smear (07/17/2024 9:30 AM EDT) Swab (Vaginal Swab) 07/17/2024 9:30 AM EDT 07/17/2024 2:19 PM EDT Narrative [facility] - 07/20/2024 10:37 AM EDT ----- ------- Name: Kate Hutchison Age/Sex: 64/F : 1960 Unit#: [id number] Attend Dr: Re07/17/24 Status: PRE REF Location: HO.LNP Disch: ----- ------- SPEC : [id number] RECD: 07/17/24 STATUS: GABINO MURRAY NUM: [id number] COLLINS: 07/17/24 [facility] DR: Cori Ramos MD ENTERED: 07/17/24 SP TYPE: Pap Smr OTHR DR: ORDERED: Pap Smear Interpretation Satisfactory for evaluation. Negative for intraepithelial lesion or malignancy. HPV High Risk: Negative HPV Genotyping 16: Negative HPV Genotyping 18: Negative Clinical Information LMP: Post menopausal Previous PAP test: Unknown date/findings Other history: Cervical cancer screening Material Received ThinPrep-Cervical PAP Disclaimer As of November 30, 2023, the technical services to include automated prescreening performed by the ThinPrep Imaging System, PAP screening and HPV testing will be performed at [facility] (CLIA #[id number]), [address] [place] [address]. Testing for HPV was performed using the [employer] KELVIN 6800 system. The presence of HPV in the female genital tract is associated with a number of diseases, including cervical carcinoma. The HPV DNA high risk pool tests for HPV 31, 33, 35, 39, 45, 51, 52, 56, 58, 59, 66 and 68. The testing for HPV 16 and 18 genotypes has also been performed. A positive result indicates detection of nucleic acid sequences from one or more subtypes, whereas a negative result indicates such sequences were not detected. All professional services are performed by [facility] ([address] [place] [address], [place] [address]; ; CLIA #[id number]). The PAP Test is a screening procedure with the inherent possibility of both false negative and false positive results. Results should be interpreted in the context of historic and current clinical findings. Reliability of the PAP Test is enhanced by performing the test on a regular repetitive basis. ----- ------- Signed (signature on file) ART Solis (ASC) 07/20/24 1037 ----- ------- END OF REPORT us Cori Ramos MD LAB CYTOLOGY ORDERABLES Final Result [facility] [address] [place] [phone] from Last [address] [place] [address] Care Teams Trade Specialist Relationship Specialty Start Date End Date Levy Rivera MD [address] [place] [address] [phone] PCP - General Internal Medicine 06/06/24
== END 2024-10-04 08:44 | disposition home or self-care (01) ==
LOC: HO.HOS 08:29
PROVIDERS: PCP Internal Medicine; Visit Provider Orthopaedic Surgery
DX: M17.0 Bilateral primary osteoarthritis of knee (principal)
CPT/HCPCS: 20610

== ENCOUNTER → 2024-10-04 08:28 | Outpatient (BNVA) | payer OTHER, SELFPAY | PROVIDERS: PCP Internal Medicine; Visit Provider Orthopaedic Surgery | DX: M17.12 Unilateral primary osteoarthritis, left knee (principal); M17.11 Unilateral primary osteoarthritis, right knee | CPT/HCPCS: 20610; J2003; J7323 ==

== ENCOUNTER 2024-10-11 09:58 | Outpatient (AMB) | payer OTHER, SELFPAY ==
[2024-10-11 10:07] VITALS: BMI 40.2
--- NOTE | 2024-10-11 10:07 | MHC.OFFVIS ---
Vital Signs 10/11/24 10:07 Height 5 ft 2 in Weight 220 lb BMI 40.2 Intake Visit Reasons: Inj- Vito knee, Euflexxa #2 Intake Note: Kate is a 64 year old female who presents today for an injection in her Bilateral knee, Euflexxa #2. She states that she got mild relief from the 1st set of injections. She continues with her home exercise program. Allergies No Known Allergies Allergy (Verified 10/11/24 10:13) Medication List - Last Reconciled 10/11/24 by Alonso Cohen MD celecoxib (Celebrex) 200 mg PO BID 2 weeks levothyroxine 125 mcg PO QAM losartan-hydrochlorothiazide 50-12.5 mg 1 tab PO DAILY PFSH Social History (Updated 10/11/24 @ 10:14 by CARRINGTON Romero) Alcohol intake: never Patient Tobacco Use Status: Never used Tobacco Current occupational status: employed Physical Exam Vital Signs: BMI result Body Mass Index 40.2 Extrem Other: Bilateral knee examination shows minimal effusions, palpable crepitus with range of motion, pain with range of motion, no instability Office Procedures AMB Joint Injection/Aspiration Joint Injection/Aspiration Primary Site: right knee Prep: site was prepped using aseptic technique Injected: 20 mg of (Euflexxa viscosupplementation) and 1% plain lidocaine Procedure: The patient tolerated the procedure well Coding 92172 - Large joint Procedure code (CPT) selection complete AMB Joint Injection/Aspiration Joint Injection/Aspiration Primary Site: left knee Prep: site was prepped using aseptic technique Injected: 20 mg of (Euflexxa viscosupplementation) and 1% plain lidocaine Procedure: The patient tolerated the procedure well Coding 22193 - Large joint Procedure code (CPT) selection complete Assessment & Plan Assessment & Plan (1) Osteoarthritis of left knee: Code(s): M17.12 - Unilateral primary osteoarthritis, left knee Category: Medical (2) Osteoarthritis of right knee: Code(s): M17.11 - Unilateral primary osteoarthritis, right knee Category: Medical Plan Kate presents with bilateral knee pains due to osteoarthritis. The risks and benefits of a 2nd set of Euflexxa viscosupplementation injections were discussed at length with the patient. The patient wished to proceed. She tolerated the injections well. She will continue with her home exercise program. She will follow up next week as scheduled. Feel free to call me at any time should questions regarding her orthopedic management arise. Orders: Orders AMB Joint Injection/Aspiration Today M17.12 - Unilateral primary osteoarthritis, left knee AMB Joint Injection/Aspiration Today M17.11 - Unilateral primary osteoarthritis, right knee Coding Level of Care Code Procedure Only Diagnoses Osteoarthritis of left knee M17.12 Osteoarthritis of right knee M17.11 CPT Codes Coding - 13800 Large joint: 91585 - Large joint ([id number]) Coding - 87218 Large joint: 02727 - Large joint ([id number])
--- OUTSIDE RECORDS SUMMARY | 2024-10-11 11:03 | XMS_ITS | Clinical Summary ---
Author Organization [employer] Address [address] [place] [address] Care Team Providers Care City Comptroller Name Role Phone Levy Rivera MD Primary Care Prov ider Allergies No known active allergies Medications losartan-hydroC HLOROthiazide (Hyzaar) 50-12.5 MG tablet Take 1 tablet by mouth Once per day. 90 tablet 3 06/06/2024 Active Blood Pressure kit 1 kit Once per day. 1 kit 06/06/2024 Active albuterol 108 (90 Base) MCG/ACT inhaler Inhale 2 puffs every 6 (six) hours if needed for wheezing. Active celecoxib (CeleBREX) 200 MG capsule Take 1 capsule (200 mg) by mouth 2 times daily. 60 capsule 2 08/02/2024 Active levothyroxine (Synthroid) 125 MCG tablet Take 1 tablet (125 mcg) by mouth before breakfast. 30 tablet 11 09/10/2024 Active Active Problems Problem Noted Date Diagnosed Date [...] Type Department Care Team Description 09/24/[address] [address] Levy Rivera MD Request For Order(s) 09/10/2024 11:15 AM EDT Office Visit [facility] [address] [place] [address] Levy Rivera MD Primary hypertension (Primary Dx); Acquired hypothyroidism 09/10/2024 Travel 09/03/2024 Patient Outreach [address] [address] Levy Rivera MD Pre-visit Planning (SDOH screening completed on 06/06/24) 08/31/2024 Results Follow-Up [address] [address] Nery Nolan ANP CBC auto differential, Comprehensive Metabolic Panel, Lipid Panel, Standard, Additional followed-up results: 4 08/31/2024 Orders Only [facility] [address] [place], [place] [phone] Levy Rivera MD 08/14/2024 Results Follow-Up [facility] [address] [place] [address] Cori Ramos MD XR Knee 4+ Views Left 08/02/2024 2:30 PM EDT Office Visit [facility] [address] [place], [place] [phone] Cori Ramos MD Chronic pain of left knee (Primary Dx) 08/02/2024 Travel 08/02/2024 Telephone [facility] [address] [place] [address] Levy Rivera MD Nurse Triage 07/27/2024 Results Follow-Up [facility] [address] [place] [address] Cori Ramos MD Pap Smear, HPV High Risk with Reflex to Subtypes 07/23/2024 Telephone [facility] [address] [place] [address] Levy Rivera MD Referral 07/17/2024 9:00 AM EDT Procedure Visit [facility] [address] [place] [address] Cori Ramos MD Colon cancer screening (Primary [...] Description 11/06/2024 11:15 AM EDT Office Visit [facility] [address] [place] [address] Amara Busch, OD [address] [place] [address] Health Maintenance Due Date Last Done Comments CT Colonography 1960 Colonoscopy 1960 Colorectal Cancer Screening 1960 FIT DNA/Cologuard 1960 FIT 1960 FOBT 1960 Sigmoidoscopy 1960 Disability Screening 1960 Mammogram 2001 Zoster Vaccines (1 of 2) 2011 RSV Patients and Patients Aged 60 years or older (1 - Risk 60-74 years 1-dose series) 2021 COVID-19 Vaccine (1 - 2023-2 5 season) 2024 Influenza Vaccine (#1) 2024 Alcohol/Substance Use Screening [...] Free T4 <0.01(L) 0.32 - 4.0 uIU/mL [facility] Blood Venous blood specimen / Unknown 08/31/2024 10:08 AM EDT 08/31/2024 1:50 PM EDT us Levy Mckinley MD LAB BLOOD ORDERABL ES Final Result [facility] [address] [place] [phone] * (ABNORMAL) CBC auto differential (08/31/2024 10:08 AM EDT) White Blood Count 6.8 4.8 - 10.8 X10*3/uL [facility] Red Blood Count 4.81 4.20 - 5.50 X10*6/uL [facility] Hemoglobin 14.2 12.0 - 16.0 g/dl [facility] Hematocrit 42.2 37.0 - 47.0 % [facility] Mean Corpuscular Volume 87.7 80.0 - 98.0 fL [facility] Mean Corpuscular Hemoglobin 29.5 27.0 - 33.0 pg [facility] Mean Corpuscular HGB Conc 33.6 31.0 - 35.0 g/dl [facility] Red Cell Distribution Width 12.5 11.0 - 16.0 % [facility] Platelet Count 382 160 - 400 X10*3/uL [facility] Mean Platelet Volume 9.9 9.4 - 12.3 fL [facility] Neutrophils Percent Auto 53.7 45 - 73 % [facility] Imm Gran Pct Auto 0.3 0.0 - 0.4 % [facility] Lymphocytes Percent Auto 25.0 20 - 40 % [facility] Monocytes Percent Auto 14.7(H) 2 - 11 % [facility] Eosinophils Percent Auto 5.6(H) 0 - 4 % [facility] Basophils Percent Auto 0.7 0 - 2 % [facility] NRBC Pct Auto 0.0 0.0 - 0.2 /100WBC [facility] Neutrophils Absolute Auto 3.6 2.0 - 8.3 x10*3/uL [facility] Imm Gran Abs Auto 0.02 0.00 - 0.03 X10*3/uL [facility] Lymphocytes Absolute Auto 1.7 1.2 - 4.9 X10*3/uL [facility] Monocytes Absolute Auto 1.0 0.1 - 1.2 X10*3/uL [facility] Eosinophils Absolute Auto 0.4 0.0 - 0.4 X10*3/uL [facility] Basophils Absolute Auto 0.1 0.0 - 0.2 X10*3/uL [facility] NRBC Abs Auto 0.000 0.0 - 0.012 X10*3/uL [facility] Blood Venous blood specimen / Unknown 08/31/2024 10:08 AM EDT 08/31/2024 1:50 PM EDT Levy Mckinley MD LAB BLOOD ORDERABL ES Final Result Performing Organization Address [facility]/ZIP Co de Phone Number [facility] [address] [place] [phone] * Hepatitis C Antibody with Reflex to HCV, RNA, Quantitative, Real-Time PCR (08/31/2024 10:08 AM EDT) Hepatitis C Antibody Nonreactive Nonreactive [facility] Comment:Antibodies to HCV no t detected; does not exclude early acuteHCV infection. Blood Venous blood specimen / Unknown 08/31/2024 10:08 AM EDT 08/31/2024 1:50 PM EDT Levy Mckinley MD LAB BLOOD ORDERABL ES Final Result Performing Organization Address [facility]/ZIP Co de Phone Number [facility] [address] [place] [phone] * HIV-1/2 Antigen and Antibodies, Fourth Generation, with Reflexes (08/31/2024 10:08 AM EDT) HIV AB/AG Nonreactive Nonreactive [facility] Comment:HIV-1 p24 Ag and/or HIV-1/HIV-2 Ab not detected.A test result that is nonreactive does not exclude thepossibility of exposure to or infection with HIV-1 and/orHIV-2. Nonreactive results in this assay for individualswith prior exposure to HIV-1 and/or HIV-2 may be due toantigen and antibody levels that are below the limit ofdetection of this assay.The [employer] HIV Ag/Ab Combo assay result andsupplemental assay results should be interpreted inconjunction with the patient's clinical presentation,history and other laboratory results. If the results areinconsistent with clinical evidence, additional testing issuggested to confirm the result. Blood Venous blood specimen / Unknown 08/31/2024 10:08 AM EDT 08/31/2024 1:50 PM EDT Levy Mckinley MD LAB BLOOD ORDERABL ES Final Result Performing Organization Address City/[facility]/ZIP Co de Phone Number [facility] [address] [place] [phone] * T4, Free (08/31/2024 10:08 AM EDT) Free T4 (Free Thyroxine) 1.41 0.71 - 1.85 ng/dL [facility] 08/31/2024 10:0 8 AM EDT 08/31/2024 1:50 PM EDT Levy Mckinley MD LAB BLOOD ORDERABL ES Final Result Performing Organization Address City/[facility]/ZIP Co de Phone Number [facility] [address] [place] [phone] * Hemoglobin A1c (08/31/2024 10:08 AM EDT) Hemoglobin A1c 6.0 <6.0 % [facility] Comment:Hemoglobin A1C Refer ence Range Adults: 4.8 - 6.0 % Non diabetic: < 6.0 % Goal: < 7.0 %Additional Action Suggested: > 8.0 %Note: Hemoglobin A1c results are invalid for patients with abnormal amounts of HbF. Blood transfusions may impact the HbA1c concentration in the patient sample. Estimated Average Glucose 126 mg/dL [facility] Comment:eAG = Estimated ave rage glucose which is %A1C expressed asaverage glucose, using the formula of the D7H-XnyejflTmdwwdq Glucose study (ADAG), Diabetes Care, Vol.31,#8,Sep. 2007 Blood Venous blood specimen / Unknown 08/31/2024 10:08 AM EDT 08/31/2024 1:50 PM EDT Levy Mckinley MD LAB BLOOD ORDERABL ES Final Result [facility] [address] [place] [phone] * Lipid Panel, Standard (08/31/2024 10:08 AM EDT) Triglycerides 96 <150 mg/dL [facility] Comment:Desirable Triglyceri de: less than 150 mg/dLBorderline High Triglyceride 150-199 mg/dLHigh Triglyceride: 200-499 mg/dLVery High Triglyceride: greater than or equal to 5OO mg/dL Cholesterol 137 <200 mg/dL [facility] Comment:Desirable Cholestero l: less than 200 mg/dLBorderline High Cholesterol: 200-239 mg/dLHigh Cholesterol: greater than 239 mg/dL LDL Cholesterol Calculated 69 <100 mg/dL [facility] Comment:Desirable LDL: less than 100 mg/dLNear Optimal/Above Optimal LDL: 110- 129 mg/dLBorderline High LDL: 130-159 mg/dLHigh LDL: 160-189 mg/dLVery High LDL: greater than or equal to 190 mg/dL HDL Cholesterol 49 >40 mg/dL [facility] Comment:Desirable HDL: great er than 40 mg/dL Note: This HDL assay may give artificially low results in patients with liver disease. Blood Venous blood specimen / Unknown 08/31/2024 10:08 AM EDT 08/31/2024 1:50 PM EDT us Levy Mckinley MD LAB BLOOD ORDERABL ES Final Result Performing Organization Address City/[facility]/ZIP Co de Phone Number [facility] [address] [place] [phone] * (ABNORMAL) Comprehensive Metabolic Panel (08/31/2024 10:08 AM EDT) Sodium 140 135 - 145 mmol/L [facility] Potassium 3.9 3.3 - 5.1 mmol/L [facility] Chloride 107 96 - 108 mmol/L [facility] Carbon Dioxide 27 22 - 29 mmol/L [facility] Anion Gap 10(L) 12 - 20 [facility] Urea Nitrogen (BUN) 25(H) 9 - 16 mg/dL [facility] Creatinine, Serum 0.71 0.5 - 1.4 mg/dL [facility] Estimated Glomerular Filt Rate >60 [facility] Comment:Chronic Kidney Disea se: Estimated GFR < 60 mL/min/1.03x6Eqqewy Kidney Disease: Estimated GFR < 15 mL/min/1.73m2 Glucose 115 60 - 115 mg/dL [facility] Calcium 9.7 8.4 - 10.2 mg/dL [facility] Bilirubin, Total 0.4 0.0 - 1.0 mg/dL [facility] Aspartate Amino Transferase 43(H) 5 - 31 U/L [facility] Alanine Aminotransferase 46(H) 0 - 31 U/L [facility] Total Protein 7.1 6.5 - 8.0 g/dL [facility] Albumin Level 4.0 3.5 - 5.0 g/dL [facility] Alkaline Phosphatase 110 39 - 117 U/L [facility] Blood Venous blood specimen / Unknown 08/31/2024 10:08 AM EDT 08/31/2024 1:50 PM EDT us Levy Mckinley MD LAB BLOOD ORDERABL ES Final Result Performing Organization Address City/[facility]/ZIP Co de Phone Number [facility] [address] [place] [phone] * XR Knee 4+ Views Left (08/13/2024 12:15 PM EDT) Anatomical Region Laterality Modality Lower Extremities, Knee Left Radiogra phic Imaging 08/13/2024 12:1 5 PM EDT Narrative 08/13/2024 1:06 PM EDT [address] [address] XRay Report Signed Patient: Kate Hutchison MR#: [id number] : 1960 Acct:[id number] Age/Sex: 64 / F ADM Date: 08/13/24 Loc: [facility] Attending Dr: Cori Ramos MD Ordering Physician: Cori Ramos MD Date of Service: 08/13/24 Procedure(s): XR knee LT 4V Accession Number(s): [id number] cc: Levy Rivera MD; Cori Ramos MD [...] 08/13/24 1304 DD/ 1215 TD/TT: 08/13/24 1230 School Business Manager: Procedure Note Donotuseinterpreter, Image - 08/13/[address] [address] XRay Report Signed Patient: Kate HutchisonMR#: [id number] : 1960cct:[id number] Age/Sex: 64 / FADM Date: 08/13/24 Loc: [facility] Attending Dr: Cori Ramos MD Ordering Physician: Cori Ramos MD Date of Service: 08/13/24 Procedure(s): XR knee LT 4V Accession Number(s): [id number] cc: Levy Rivera MD; Cori Ramos MD [...] 08/13/24 1304 DD/ 1215 TD/TT: 08/13/24 1230 School Business Manager: us Cori Ramos MD IMG XR PROCEDURES Final Resul t * HPV High Risk with Reflex to Subtypes (07/17/2024 9:30 AM EDT) HPV High Risk Negative Negative [facility] HPV Genotype 16 Negative Negative [facility] HPV Genotype 18 Negative Negative [facility] Comment:HPV testing performe d at [facility] (CLIA#[id number]), [address] [place], [place] [address].Testing for HPV was performed using the Clem [...] MD LAB BLOOD ORDERABLES Final Re sult [facility] [address] [place] [phone] * Pap Smear (07/17/2024 9:30 AM EDT) Swab (Vaginal Swab) 07/17/2024 9:30 AM EDT 07/17/2024 2:19 PM EDT Narrative [facility] - 07/20/2024 10:37 AM EDT ----- ------- Name: Kate Hutchison Age/Sex: 64/F : 1960 Unit#: [id number] Attend Dr: Re07/17/24 Status: PRE REF Location: [facility] Disch: ----- ------- SPEC : [id number] RECD: 07/17/24 STATUS: GABINO MURRAY NUM: [id number] COLLINS: 07/17/[address] [facility] [address]: Cori Ramos MD ENTERED: 07/17/24 SP [...] and HPV testing will be performed at [facility] (CLIA #[id number]), [address] [place] [address]. Testing for HPV was performed using the [...] detected. All professional services are performed by [facility] ([address] [place] [phone]; ; CLIA #[id number]). The PAP Test is a screening procedure with the inherent possibility of both false negative and false positive results. Results should be interpreted in the context of historic and current clinical findings. Reliability of the PAP Test is enhanced by performing the test on a regular repetitive basis. ----- ------- Signed (signature on file) AgustoART Ye (ASCP) 07/20/24 1037 ----- ------- END OF REPORT us Cori Ramos MD LAB CYTOLOGY ORDERABLES Final Result [facility] [address] [place] [phone] from Last [address] [place] [place] [address] Care Teams City Comptroller Relationship Specialty Start Date End Date Levy Rivera MD [address] [place] [phone] PCP - General Internal Medicine 06/06/24
--- OUTSIDE RECORDS SUMMARY | 2024-10-11 11:03 | XMS_ITS | Encounter Summary ---
Author Organization [employer] Address [address] [facility] [address] [place] [address] Care Team Providers Care Canteen Manager Name Role Phone Levy Rivera MD Primary Care Prov ider Reason for Visit * Reason Onset Date Comments Request For Order(s) 09/24/2024 Encounter Details Date Type Department Care Team ([facility] st Contact Info) Description 09/24/2024 Telephone [facility] [address] [place] [address] Levy Rivera MD [address] [place] [phone] Request For Order(s) Social History Tobacco Use [...] Pt requesting the order. Contact pt at [phone] Need aerophysicist documented in this encounter Plan of Treatment Upcoming Encounters Date Type Department Care Team (Late st Contact Info) Description 11/06/2024 11:15 AM EDT Office Visit [facility] [address] [place] [address] Amara Busch, OD [address] [place] [address] documented as of this encounter Visit Diagnoses Not on filedocumented in this encounter Additional Health Concerns Assessment Noted Time PHQ-9 Depression Total Score: 2 06/07/19 2:18 PM EDT documented as of this encounter Care Teams Canteen Manager Relationship Specialty Start Date End Date Levy Rivera MD [address] [place] [address] PCP - General Internal Medicine 06/06/24 documented as of this encounter
== END 2024-10-11 10:23 | disposition home or self-care (01) ==
LOC: HO.HOS 09:59
PROVIDERS: PCP Internal Medicine; Visit Provider Orthopaedic Surgery
DX: M17.0 Bilateral primary osteoarthritis of knee (principal)
CPT/HCPCS: 20610

== ENCOUNTER → 2024-10-11 09:58 | Outpatient (BNVA) | payer OTHER, SELFPAY | PROVIDERS: PCP Internal Medicine; Visit Provider Orthopaedic Surgery | DX: M17.0 Bilateral primary osteoarthritis of knee (principal) | CPT/HCPCS: 20610; J2003; J7323 ==

== ENCOUNTER 2024-10-18 10:28 | Outpatient (AMB) | payer OTHER, SELFPAY ==
[2024-10-18 10:31] VITALS: BMI 40.2
--- NOTE | 2024-10-18 10:31 | MHC.OFFVIS ---
Vital Signs 10/18/24 10:31 Height 5 ft 2 in Weight 220 lb BMI 40.2 Intake Visit Reasons: Inj- Vito knee knee Euflexxa #3 Intake Note: Kate is a 64 year old woman who presents today for her bilateral knees Euflexxa 3# injections. She states that she has gotten mild relief from the first 2 sets of injections. She continues to walk for exercise. Balance Wheel Screw Hole Tapper Required: Yes Balance Wheel Screw Hole Tapper Language: Mon[employer]al Stonem[employer] Services: Balance Wheel Screw Hole Tapper Present (iPAD) Balance Wheel Screw Hole Tapper Name: # [id number] Allergies No Known Allergies Allergy (Verified 10/18/24 10:32) Medication List - Last Reconciled 10/18/24 by Alonso Cohen MD celecoxib (Celebrex) 200 mg PO BID 2 weeks levothyroxine 125 mcg PO QAM losartan-hydrochlorothiazide 50-12.5 mg 1 tab PO DAILY PFSH Medical History (Updated 10/18/24 @ 10:32 by CARRINGTON Romero) Osteoarthritis of right knee Osteoarthritis of left knee Social History Alcohol intake: never Patient Tobacco Use Status: Never used Tobacco Current occupational status: employed Physical Exam Vital Signs: BMI result Body Mass Index 40.2 Extrem Other: Bilateral knee examination shows minimal effusions, palpable crepitus with range of motion, pain with range of motion, no instability Office Procedures AMB Joint Injection/Aspiration Joint Injection/Aspiration Primary Site: left knee Prep: site was prepped using aseptic technique Injected: 20 mg of (Euflexxa viscosupplementation) and 1% plain lidocaine Procedure: The patient tolerated the procedure well Coding 43276 - Large joint Procedure code (CPT) selection complete AMB Joint Injection/Aspiration Joint Injection/Aspiration Primary Site: right knee Prep: site was prepped using aseptic technique Injected: 20 mg of (Euflexxa viscosupplementation) and 1% plain lidocaine Procedure: The patient tolerated the procedure well Coding 90700 - Large joint Procedure code (CPT) selection complete Results Reviewed Results Reviewed: X-rays of the patient's bilateral knees taken previously show joint space narrowing, subchondral sclerosis, no acute bony abnormalities Assessment & Plan Assessment & Plan (1) Osteoarthritis of left knee: Code(s): M17.12 - Unilateral primary osteoarthritis, left knee Category: Medical (2) Osteoarthritis of right knee: Code(s): M17.11 - Unilateral primary osteoarthritis, right knee Category: Medical Plan Kate presents for follow-up of her bilateral knee pains due to osteoarthritis. The risks and benefits of a 3rd set of Euflexxa injections were discussed at length with the patient. The patient wished to proceed. She tolerated the injections well. She will continue with her home exercise program. She will contact me prior to her follow-up appointment in 3 months should any questions or concerns arise. Feel free to call me at any time should questions regarding her orthopedic management arise. I spent 22 minutes in reviewing the patient's records and imaging studies, seeing the patient and documenting in the medical record. Orders: Orders AMB Joint Injection/Aspiration Today M17.12 - Unilateral primary osteoarthritis, left knee AMB Joint Injection/Aspiration Today M17.11 - Unilateral primary osteoarthritis, right knee Coding Level of Care Code Procedure Only Diagnoses Osteoarthritis of left knee M17.12 Osteoarthritis of right knee M17.11 CPT Codes Coding - 34520 Large joint: 28417 - Large joint ([id number]) Coding - 61480 Large joint: 99503 - Large joint ([id number])
== END 2024-10-18 10:53 | disposition home or self-care (01) ==
LOC: HO.HOS 10:29
PROVIDERS: PCP Internal Medicine; Visit Provider Orthopaedic Surgery
DX: M17.0 Bilateral primary osteoarthritis of knee (principal)
CPT/HCPCS: 20610

== ENCOUNTER → 2024-10-18 10:28 | Outpatient (BNVA) | payer OTHER, SELFPAY | PROVIDERS: PCP Internal Medicine; Visit Provider Orthopaedic Surgery | DX: M17.0 Bilateral primary osteoarthritis of knee (principal) | CPT/HCPCS: 20610; J2003; J7323 ==

== ENCOUNTER 2024-11-02 08:24 | Outpatient (REF) | payer OTHER, SELFPAY ==
--- OUTSIDE RECORDS SUMMARY | 2024-10-30 11:30 | XMS_ITS | Encounter Summary ---
Author Organization [employer] Address [address] [place] [address] [address] [place] [address] Care Team Providers Care Editing Computer Publisher Name Role Phone Levy Rivera MD Primary Care Prov ider Reason for Referral * Imaging (Routine) - Authorized Specialty Diagnoses / Procedures Referred By Contac t Referred To Contact Radiology Diagnoses Acquired hypothyroidism Procedures US Thyroid Levy Rivera MD [address] [place] [address] Phone: tel: fax: [address] Phone: tel: fax: Referral ID Status Reason Start Date Expiration Date V isits Requested Visits Authorized [id number] Authorized 10/30/2024 10/30/2025 1 1 Encounter Details Date Type Department Care Team (Latest Contact Info) Description 10/30/2024 11:30 AM EDT Office Visit [facility] [address] [place] [address] Levy Rivera MD [address] [place], [place] [phone] Acquired hypothyroidism (Primary Dx); Primary hypertension; Primary insomnia Social History Tobacco Use Types Packs/Day Years [...] is your housing situation today? I [facility] at [facility] 06/06/[address] you [...] PM EDT documented as of this encounter Last Filed Vital Signs Vital Sign Reading Time Taken Comments Blood Pressure 142/84 10/30/2024 11:30 AM EDT Pulse 68 10/30/2024 11:30 AM EDT Temperature 37.1 C (98.7 F) 10/30/2024 11:30 AM EDT Respiratory Rate 20 10/30/2024 11:30 AM EDT Oxygen Saturation - - Inhaled Oxygen Concentration - - Weight 101 kg (223 lb) 10/30/2024 11:30 AM EDT Height 154.9 cm (5' 1 ) 10/30/2024 11:30 AM EDT Body Mass Index 42.14 10/30/2024 11:30 AM EDT documented in this encounter Progress Notes * Levy Mckinley MD - 10/30/2024 11:30 AM EDT Subjective Patient ID: Kate Belcher is a 64 y.o. female who presents for No chief complaint on file.. Thyroid Problem Presents for follow-up visit. Patient reports no depressed mood, fatigue or weight loss. Review of Systems Constitutional: Negative for fatigue and weight loss. Objective Physical Exam Constitutional: Appearance: Normal appearance. Cardiovascular: Rate and Rhythm: Normal rate. Heart sounds: No murmur heard. Pulmonary: Effort: Pulmonary effort is normal. No respiratory distress. Breath sounds: No stridor. No wheezing or rhonchi. Neurological: General: No focal deficit present. Mental Status: She is alert and oriented to person, place, and time. Psychiatric: Mood and Affect: Mood normal. Behavior: Behavior normal. Assessment/Plan Problem List Items Addressed This Visit Primary hypertension Stable, continue low sodium diet and exercise as tolerated, keep blood pressure log, follow up in 3months Acquired hypothyroidism - Primary New labs ordered for guidance of therapy, Relevant Orders TSH W/Reflex to FT4 US Thyroid Primary insomnia Alfonso start on zolpidem, risk vs benefits discussed, follow up in 1 month documented in this encounter Miscellaneous Notes * Assessment & Plan Note - Levy Mckinley MD - 10/30/2024 12:39 PM EDTAssociated Problem(s): Primary insomnia Alfonso start on zolpidem, risk vs benefits discussed, follow up in 1 month * Assessment & Plan Note - Levy Mckinley MD - 10/30/2024 12:38 PM EDTAssociated Problem(s): Acquired hypothyroidism New labs ordered for guidance of therapy, * Assessment & Plan Note - Levy Mckinley MD - 10/30/2024 12:37 PM EDTAssociated Problem(s): Primary hypertension Stable, continue low sodium diet and exercise as tolerated, keep blood pressure log, follow up in 3months documented in this encounter Plan of Treatment Upcoming Encounters Date Type Department Care Team (Late st Contact Info) Description 11/06/2024 11:15 AM EDT Office Visit [facility] [address] [place] [address] Tarka, Amara, OD [address] [place] [address] 12/03/2024 10:30 AM EDT Telemedicine [facility] [address] [place], [place] [phone] Levy Rivera MD [address] [place] [address] Scheduled Orders Name Type Priority Associated Diagnoses Orde r Schedule TSH W/Reflex to FT4 Lab Routine Acquired hypothyroidism Expected: 10/30/2024 (Approximate), Expires: 10/30/2025 US Thyroid Imaging Routine Acquired hypothyroidism Expected: 10/30/2024, Expires: 10/30/2025 documented as of this encounter Visit Diagnoses Diagnosis Acquired hypothyroidism- Primary Unspecified hypothyroidism Primary hypertension Unspecified essential hypertension Primary insomnia Persistent disorder of initiating or maintaining sleep documented in this encounter Additional Health Concerns Assessment Noted Time PHQ-9 Depression Total Score: 2 06/07/19 25 2:18 PM EDT documented as of this encounter Care Teams Editing Computer Publisher Relationship Specialty Start Date End Date Levy Rivera MD [address] [place] [address] PCP - General Internal Medicine 06/06/24 documented as of this encounter
--- OUTSIDE RECORDS SUMMARY | 2024-11-02 08:46 | XMS_ITS | Encounter Summary ---
Author Organization [employer] Address [address] [facility] [address] [place] [address] Care Team Providers Care College Associate Name Role Phone Levy Rivera MD Primary Care Prov ider Reason for Visit * Reason Onset Date Comments Request For Order(s) 09/24/2024 Encounter Details Date Type Department Care Team ([facility] st Contact Info) Description 09/24/2024 Telephone [facility] [address] [place] [address] Levy Rivera MD [address] [place] [phone] Request For Order(s) Social History Tobacco Use [...] encounter Miscellaneous Notes * Telephone Encounter - Shi Flores RN - 10/30/2024 12:39 PM EDT Noted. Patient seen today in office by PCP and thyroid US was ordered. No further f/u needed at this time. * Telephone Encounter - Charis Banda - 10/24/2024 2:50 PM EDT Tc from pt requesting status on prior message. Pt requesting an order for pneumonia shot. Contact pt at [phone] Need grease buffer * Telephone Encounter - Charis Banda - 09/24/2024 11:23 AM EDT Tc from pt stating she was advised by PCP that an order for a sonogram would be placed. Pt requesting the order. Contact pt at [phone] Need grease buffer documented in this encounter Plan of Treatment Upcoming Encounters Date Type Department Care Team (Late st Contact Info) Description 11/06/2024 11:15 AM EDT Office Visit [facility] [address] [place] [address] Narayan Amara, OD [address] [place] [address] 12/03/2024 10:30 AM EDT Telemedicine [facility] [address] [place] [address] Levy Rivera MD [address] [place] [address] documented as of this encounter Visit Diagnoses Not on filedocumented in this encounter Additional Health Concerns Assessment Noted Time PHQ-9 Depression Total Score: 2 06/07/19 25 2:18 PM EDT documented as of this encounter Care Teams College Associate Relationship Specialty Start Date End Date Levy Rivera MD [address] [place] [address] PCP - General Internal Medicine 06/06/24 documented as of this encounter
--- OUTSIDE RECORDS SUMMARY | 2024-11-02 08:46 | XMS_ITS | Encounter Summary ---
Author Organization [employer] Address [address] [place] [address] Care Team Providers Care Ship Boss Name Role Phone Levy Rivera MD Primary Care Prov ider Encounter Details Date Type Department Care Team (Latest Contact Info) Description 10/30/2024 Travel Social History Tobacco Use Types Packs/Day Years [...] Description 11/06/2024 11:15 AM EDT Office Visit [facility] [address] [place], [place] [phone] Amara Busch, OD [address] [place] [address] 12/03/2024 10:30 AM EDT Telemedicine [facility] [address] [place] [address] Levy Rivera MD [address] [place] [address] documented as of this encounter Visit Diagnoses Not on filedocumented in this encounter Additional Health Concerns Assessment Noted Time PHQ-9 Depression Total Score: 2 06/07/19 25 2:18 PM EDT documented as of this encounter Care Teams Ship Boss Relationship Specialty Start Date End Date Levy Rivera MD [address] [place] [address] PCP - General Internal Medicine 06/06/24 documented as of this encounter
--- OUTSIDE RECORDS SUMMARY | 2024-11-02 08:46 | XMS_ITS | Encounter Summary ---
Author Organization [employer] Address [address] [facility] [address] [place] [address] Care Team Providers Care Electrical Tech/Project Manager Name Role Phone Levy Rivera MD Primary Care Prov ider Encounter Details Date Type Department Care Team ([facility] st Contact Info) Description 10/31/2024 Orders Only [facility] [address] [place], [place] [phone] Levy Rivera MD [address] [place], [place] [phone] Social History Tobacco Use Types Packs/Day Years [...] Description 11/06/2024 11:15 AM EDT Office Visit [facility] [address] [place] [address] TarkaAmara, OD [address] [place] [address] 12/03/2024 10:30 AM EDT Telemedicine [facility] [address] [place] [address] Levy Rivera MD [address] [place] [address] documented as of this encounter Visit Diagnoses Not on filedocumented in this encounter Additional Health Concerns Assessment Noted Time PHQ-9 Depression Total Score: 2 06/07/19 25 2:18 PM EDT documented as of this encounter Care Teams Electrical Tech/Project Manager Relationship Specialty Start Date End Date Levy Rivera MD [address] [place] [address] PCP - General Internal Medicine 06/06/24 documented as of this encounter
--- OUTSIDE RECORDS SUMMARY | 2024-11-02 08:46 | XMS_ITS | Clinical Summary ---
Author Organization [employer] Address [address] [place] [address] Care Team Providers Care Body Shop Worker Name Role Phone Levy Rivera MD Primary [...] mouth before breakfast. 30 tablet 11 09/10/2024 6 Active zolpidem (Ambien) 10 MG tablet Take 1 tablet (10 mg) by mouth if needed at bedtime for sleep. 30 tablet 2 10/31/2024 5 Active Active Problems Problem Noted Date Diagnosed Date Primary insomnia 10/30/2024 Assessment & Plan (10/30/2024 12:39 PM EDT): Alfonso start on zolpidem, risk vs benefits discussed, follow up in 1 month Chronic pain of left knee 08/06/2024 Assessment [...] due Primary hypertension 06/06/2024 Assessment & Plan (10/30/2024 12:37 PM EDT): Stable, continue low sodium diet and exercise as tolerated, keep blood pressure log, follow up in 3 months Assessment & Plan (09/10/2024 12:43 PM EDT): [...] ordered Acquired hypothyroidism 06/06/2024 Assessment & Plan (10/30/2024 12:38 PM EDT): New labs ordered for guidance of therapy, Assessment & Plan (09/10/2024 12:43 PM EDT): [...] Encounters Date Type Department Care Team Description 10/31/2024 Orders Only [facility] [address] [place] [address] Levy Rivera MD 10/30/2024 11:30 AM EDT Office Visit [facility] [address] [place] [address] Levy Rivera MD Acquired hypothyroidism (Primary Dx); Primary hypertension; Primary insomnia 10/30/2024 Telephone [facility] [address] [place] [address] Levy Rivera MD Medication Question 10/30/2024 Travel 09/24/[address] [address] Levy Rivera MD Request For Order(s) 09/10/2024 11:15 AM EDT Office Visit [facility] [address] [place] [address] Levy Rivera MD Primary hypertension (Primary Dx); Acquired hypothyroidism 09/10/2024 Travel 09/03/2024 Patient Outreach [address] [address] Levy Rivera MD Pre-visit Planning (SDOH screening completed on 06/06/24) 08/31/2024 Results Follow-Up [address] [address] Nery Nolan ANP CBC auto differential, Comprehensive Metabolic Panel, Lipid Panel, Standard, Additional followed-up results: 4 08/31/2024 Orders Only [facility] [address] [place] [address] Levy Rivera MD 08/14/2024 Results Follow-Up [facility] [address] [place] [address] Cori Ramos MD XR Knee 4+ Views Left 08/02/2024 2:30 PM EDT Office Visit [facility] [address] [place] [address] Cori Ramos MD Chronic pain of left knee (Primary Dx) 08/02/2024 Travel 08/02/[address] [address] Levy Rivera MD Nurse Triage from Last 3 Months Immunizations Immunization Administration [...] 20 10/30/2024 11:30 AM EDT Oxygen Saturation 98% 08/02/2024 2:05 PM EDT Inhaled Oxygen Concentration - - Weight 101 kg (223 lb) 10/30/2024 11:30 AM EDT Height 154.9 cm (5' 1 ) 10/30/2024 11:30 AM EDT Body Mass Index 42.14 10/30/2024 11:30 AM EDT Plan of Treatment Upcoming Encounters Date Type Department Care Team (Late st Contact Info) Description 11/06/2024 11:15 AM EDT Office Visit [facility] OPT[facility] [address] [place] [address] Amara Busch, OD [address] [place] [address] 12/03/2024 10:30 AM EDT Telemedicine [facility] [address] [place], [place] [phone] Levy Rivera MD [address] [place], [place] [phone] Health Maintenance Due Date Last Done Comments [...] PM EDT Chronic pain of left knee HPV DNA, LOW/HIGH RISK Routine 9:30 AM EDT Cervical cancer screening PAP SMEAR Routine 07/17/2024 9:30 AM EDT Cervical cancer screening from Last 3 Months or Most Recently Relevant to Health Maintenance Results * (ABNORMAL) TSH W/Reflex to FT4 (08/31/2024 10:08 AM EDT) Pathologist [facility] TSH reflex Free T4 <0.01(L) 0.32 - 4.0 uIU/mL [facility] Blood Venous blood specimen / Unknown 08/31/2024 10:08 AM EDT 08/31/2024 1:50 PM EDT Levy Mckinley MD LAB BLOOD ORDERABL ES Final Result [facility] [address] [place] [phone] * (ABNORMAL) CBC auto differential (08/31/2024 10:08 AM EDT) White Blood Count 6.8 4.8 - 10.8 X10*3/uL [facility] Red Blood Count 4.81 4.20 - 5.50 X10*6/uL [facility] Hemoglobin 14.2 12.0 - 16.0 g/dl [facility] Hematocrit 42.2 37.0 - 47.0 % [facility] Mean Corpuscular Volume 87.7 80.0 - 98.0 fL [facility] Mean Corpuscular Hemoglobin 29.5 27.0 - 33.0 pg [facility] Mean Corpuscular HGB Conc 33.6 31.0 - 35.0 g/dl [facility] Red Cell Distribution Width 12.5 11.0 - 16.0 % [facility] Platelet Count 382 160 - 400 X10*3/uL [facility] Mean Platelet Volume 9.9 9.4 - 12.3 fL [facility] Neutrophils Percent Auto 53.7 45 - 73 % [facility] Imm Gran Pct Auto 0.3 0.0 - 0.4 % [facility] Lymphocytes Percent Auto 25.0 20 - 40 % [facility] Monocytes Percent Auto 14.7(H) 2 - 11 % [facility] Eosinophils Percent Auto 5.6(H) 0 - 4 % [facility] Basophils Percent Auto 0.7 0 - 2 % [facility] NRBC Pct Auto 0.0 0.0 - 0.2 /100WBC [facility] Neutrophils Absolute Auto 3.6 2.0 - 8.3 x10*3/uL [facility] Imm Gran Abs Auto 0.02 0.00 - 0.03 X10*3/uL [facility] Lymphocytes Absolute Auto 1.7 1.2 - 4.9 X10*3/uL [facility] Monocytes Absolute Auto 1.0 0.1 - 1.2 X10*3/uL [facility] Eosinophils Absolute Auto 0.4 0.0 - 0.4 X10*3/uL [facility] Basophils Absolute Auto 0.1 0.0 - 0.2 X10*3/uL [facility] NRBC Abs Auto 0.000 0.0 - 0.012 X10*3/uL [facility] Blood Venous blood specimen / Unknown 08/31/2024 10:08 AM EDT 08/31/2024 1:50 PM EDT us Levy Mckinley MD LAB BLOOD ORDERABL ES Final Result [facility] [address] [place] [phone] * Hepatitis C Antibody with Reflex to HCV, RNA, Quantitative, Real-Time PCR (08/31/2024 10:08 AM EDT) Pathologist [facility] Hepatitis C Antibody Nonreactive Nonreactive [facility] Comment:Antibodies to HCV no t detected; does not exclude early acuteHCV infection. Blood Venous blood specimen / Unknown 08/31/2024 10:08 AM EDT 08/31/2024 1:50 PM EDT us Levy Mckinley MD LAB BLOOD ORDERABL ES Final Result Performing Organization Address [facility] Co de Phone Number [facility] [address] [place] [phone] * HIV-1/2 Antigen and Antibodies, Fourth Generation, with Reflexes (08/31/2024 10:08 AM EDT) [facility] HIV AB/AG Nonreactive Nonreactive [facility] Comment:HIV-1 p24 Ag and/or HIV-1/HIV-2 Ab not detected.A test result that is nonreactive does not exclude thepossibility of exposure to or infection with HIV-1 and/orHIV-2. Nonreactive results in this assay for individualswith prior exposure to HIV-1 and/or HIV-2 may be due toantigen and antibody levels that are below the limit ofdetection of this assay.The [employer] HIV Ag/Ab Combo assay result andsupplemental assay results should be interpreted inconjunction with the patient's clinical presentation,history and other laboratory results. If the results areinconsistent with clinical evidence, additional testing issuggested to confirm the result. Blood Venous blood specimen / Unknown 08/31/2024 10:08 AM EDT 08/31/2024 1:50 PM EDT us Levy Mckinley MD LAB BLOOD ORDERABL ES Final Result Performing Organization Address [facility] Co de Phone Number [facility] [address] [place] [phone] * T4, Free (08/31/2024 10:08 AM EDT) Free T4 (Free Thyroxine) 1.41 0.71 - 1.85 ng/dL [facility] 08/31/2024 10:0 8 AM EDT 08/31/2024 1:50 PM EDT Levy Mckinley MD LAB BLOOD ORDERABL ES Final Result Performing Organization Address [facility] de Phone Number [facility] [address] [place] [phone] * Hemoglobin A1c (08/31/2024 10:08 AM EDT) Hemoglobin A1c 6.0 <6.0 % [facility] Comment:Hemoglobin A1C Refer ence Range Adults: 4.8 - 6.0 % Non diabetic: < 6.0 % Goal: < 7.0 %Additional Action Suggested: > 8.0 %Note: Hemoglobin A1c results are invalid for patients with abnormal amounts of HbF. Blood transfusions may impact the HbA1c concentration in the patient sample. Estimated Average Glucose 126 mg/dL [facility] Comment:eAG = Estimated ave rage glucose which is %A1C expressed asaverage glucose, using the formula of the C7D-OwksgluYvktogu Glucose study (ADAG), Diabetes Care, Vol.31,#8,2007 Blood Venous blood specimen / Unknown 08/31/2024 10:08 AM EDT 08/31/2024 1:50 PM EDT Levy Mckinley MD LAB BLOOD ORDERABL ES Final Result Performing Organization Address [facility] Co de Phone Number [facility] [address] [place] [phone] * Lipid Panel, Standard (08/31/2024 10:08 AM EDT) Triglycerides 96 <150 mg/dL [facility] Comment:Desirable Triglyceri de: less than 150 mg/dLBorderline High Triglyceride 150-199 mg/dLHigh Triglyceride: 200-499 mg/dLVery High Triglyceride: greater than or equal to 5OO mg/dL Cholesterol 137 <200 mg/dL [facility] Comment:Desirable Cholestero l: less than 200 mg/dLBorderline High Cholesterol: 200-239 mg/dLHigh Cholesterol: greater than 239 mg/dL LDL Cholesterol Calculated 69 <100 mg/dL [facility] Comment:Desirable LDL: less than 100 mg/dLNear Optimal/Above Optimal LDL: 110- 129 mg/dLBorderline High LDL: 130-159 mg/dLHigh LDL: 160-189 mg/dLVery High LDL: greater than or equal to 190 mg/dL HDL Cholesterol 49 >40 mg/dL [facility] Comment:Desirable HDL: great er than 40 mg/dL Note: This HDL assay may give artificially low results in patients with liver disease. Blood Venous blood specimen / Unknown 08/31/2024 10:08 AM EDT 08/31/2024 1:50 PM EDT us Levy Mckinley MD LAB BLOOD ORDERABL ES Final Result [facility] [address] [place] [phone] * (ABNORMAL) Comprehensive Metabolic Panel (08/31/2024 10:08 AM EDT) Sodium 140 135 - 145 mmol/L [facility] Potassium 3.9 3.3 - 5.1 mmol/L [facility] Chloride 107 96 - 108 mmol/L [facility] Carbon Dioxide 27 22 - 29 mmol/L [facility] Anion Gap 10(L) 12 - 20 [facility] Urea Nitrogen (BUN) 25(H) 9 - 16 mg/dL [facility] Creatinine, Serum 0.71 0.5 - 1.4 mg/dL [facility] Estimated Glomerular Filt Rate >60 [facility] Comment:Chronic Kidney Disea se: Estimated GFR < 60 mL/min/1.88i3Aavpoc Kidney Disease: Estimated GFR < 15 mL/min/1.73m2 Glucose 115 60 - 115 mg/dL [facility] Calcium 9.7 8.4 - 10.2 mg/dL [facility] Bilirubin, Total 0.4 0.0 - 1.0 mg/dL [facility] Aspartate Amino Transferase 43(H) 5 - 31 U/L [facility] Alanine Aminotransferase 46(H) 0 - 31 U/L [facility] Total Protein 7.1 6.5 - 8.0 g/dL [facility] Albumin Level 4.0 3.5 - 5.0 g/dL [facility] Alkaline Phosphatase 110 39 - 117 U/L [facility] Blood Venous blood specimen / Unknown 08/31/2024 10:08 AM EDT 08/31/2024 1:50 PM EDT us Levy Mckinley MD LAB BLOOD ORDERABL ES Final Result [facility] [address] [place] [phone] * XR Knee 4+ Views Left (08/13/2024 12:15 PM EDT) Anatomical Region Laterality Modality Lower Extremities, Knee Left Radiogra phic Imaging 08/13/2024 12:1 5 PM EDT Narrative 08/13/2024 1:06 PM EDT [address] [address] XRay Report Signed Patient: Kate Hutchison MR#: [id number] : 1960 Acct:[id number] Age/Sex: 64 / F ADM Date: 08/13/24 Loc: [facility] Attending Dr: Cori Ramos MD Ordering Physician: Cori Ramos MD Date of Service: 08/13/24 Procedure(s): XR knee LT 4V Accession Number(s): [id number] cc: Levy Rivera MD; Cori Ramos MD [...] 08/13/24 1304 DD/ 1215 TD/TT: 08/13/24 1230 Title I Assistant: Procedure Note Donotuseinterpreter, Image - 08/13/2024 [place] [address] XRay Report Signed Patient: Kate HutchisonMR#: [id number] : 1960cct:[id number] Age/Sex: 64 / FADM Date: 08/13/24 Loc: [facility] Attending Dr: Cori Ramos MD Ordering Physician: Cori Ramos MD Date of Service: 08/13/24 Procedure(s): XR knee LT 4V Accession Number(s): [id number] cc: Levy Rivera MD; Cori Ramos MD [...] Thomas Zuniga MD 08/13/2024 01:04 PM EDT RP Dictated By: Thomas Zuniga MD Signed By: <Electronically signed by Thomas Zuniga MD in OV> 08/13/24 1304 DD/ 1215 TD/TT: 08/13/24 1230 Title I Assistant: Cori Ramos MD IMG XR PROCEDURES Final Resul t * HPV High Risk with Reflex to Subtypes (07/17/2024 9:30 AM EDT) HPV High Risk Negative Negative [facility] HPV Genotype 16 Negative Negative [facility] HPV Genotype 18 Negative Negative [facility] Comment:HPV testing performe d at [facility] (CLIA#[id number]), [address] [place] [address].Testing for HPV was performed using the Clem [...] 9:30 AM EDT 07/17/2024 2:19 PM EDT Cori Ramos MD LAB BLOOD ORDERABLES Final Re sult [facility] [address] [place] [phone] * Pap Smear (07/17/2024 9:30 AM EDT) Swab (Vaginal Swab) 07/17/2024 9:30 AM EDT 07/17/2024 2:19 PM EDT [facility] - 07/20/2024 10:37 AM EDT ----- ------- Name: Kate Hutchison Age/Sex: 64/F : 1960 Unit#: [id number] Attend Dr: Re07/17/24 Status: PRE REF Location: [place] Disch: ----- ------- SPEC : [id number] RECD: 07/17/24 STATUS: GABINO MURRAY NUM: [id number] COLLINS: 07/17/[address] [facility] [address]: Cori Ramos MD ENTERED: 07/17/24 SP TYPE: Pap Smr [facility] DR: ORDERED: Pap Smear Interpretation Satisfactory for [...] and HPV testing will be performed at [facility] (CLIA #[id number]), [address] [place] [phone]. Testing for HPV was performed using the [...] detected. All professional services are performed by [facility] ([address] [place] [address], [place] [address]; ; CLIA #[id number]). The PAP Test is a screening procedure with the inherent possibility of both false negative and false positive results. Results should be interpreted in the context of historic and current clinical findings. Reliability of the PAP Test is enhanced by performing the test on a regular repetitive basis. ----- ------- Signed (signature on file) [facility] (ASCP) 07/20/24 1037 ----- ------- END OF REPORT us Cori Ramos MD LAB CYTOLOGY ORDERABLES Final Result [facility] [address] [place] [phone] from Last 3 Months or Most Recently Relevant to Health Maintenance Insurance [facility] Care Teams Body Shop Worker Relationship Specialty Start Date End Date Levy Rivera MD [address] [place] [phone] PCP - General Internal Medicine 06/06/24
--- OUTSIDE RECORDS SUMMARY | 2024-11-02 08:46 | XMS_ITS | Encounter Summary ---
Author Organization [employer] Address [address] [place] [address] 7 [place] [address] Care Team Providers Care Glue Mounter Operator Name Role Phone Levy Rivera MD Primary Care Prov ider Reason for Visit * Reason Onset Date Comments Medication Question 10/30/2024 Encounter Details Date Type Department Care Team ([facility] st Contact Info) Description 10/30/2024 Telephone C [facility] [address] [place], [place] [phone] Levy Rivera MD [address] [place] [address] Medication Question Social History Tobacco Use Types Packs/Day Years [...] encounter Miscellaneous Notes * Telephone Encounter - Jacques Moyer - 10/30/2024 3:30 PM EDT Tc from pt requesting Ambien for sleep. Pt reports she spoke about at the apt. Any questions contact pt at [phone] documented in this encounter Plan of Treatment Upcoming Encounters Date Type Department Care Team (Late st Contact Info) Description 11/06/2024 11:15 AM EDT Office Visit [facility] OPT[facility] [address] [place] [address] TarAmara correia, OD [address] [place] [address] 12/03/2024 10:30 AM EDT Telemedicine [facility] [address] [place] [address] Levy Rivera MD [address] [place] [address] documented as of this encounter Visit Diagnoses Not on filedocumented in this encounter Additional Health Concerns Assessment Noted Time PHQ-9 Depression Total Score: 2 06/07/19 25 2:18 PM EDT documented as of this encounter Care Teams Glue Mounter Operator Relationship Specialty Start Date End Date Levy Rivera, MD [address] [place] [phone] PCP - General Internal Medicine 06/06/24 documented as of this encounter
[2024-11-02 11:38] LABS: Free T4 (Free Thyroxine) 1.24 ng/dL (0.71-1.85)
== END 2024-11-02 08:25 | disposition home or self-care (01) ==
LOC: HO.LAB 08:24
PROVIDERS: PCP Internal Medicine; Visit Provider Internal Medicine
DX: E03.9 Hypothyroidism, unspecified (principal)
CPT/HCPCS: 36415; 84439; 84443

== ENCOUNTER 2025-01-14 10:30 | Outpatient (REF) | payer OTHER, SELFPAY ==
--- NOTE | ~2025-01-14 | US_ITS ---
EXAMINATION: US THYROID CLINICAL INFORMATION: Hypothyroidism. COMPARISON: None available. TECHNIQUE: Linear transducer grayscale and color Doppler examination with attention to the region of the thyroid. FINDINGS: SIZE: Measurements of the thyroid lobes and nodules are given in sagittal, anteroposterior and transverse dimensions respectively. Right Thyroid Lobe: 3.0 x 1.3 x 1.1 cm, volume 2.3 mL. Parenchyma: The gland echotexture is heterogeneous. Thyroid vascularity is normal. Left Thyroid Lobe: 2.4 x 0.7 x 0.9 cm, volume 0.8 mL. Parenchyma: The gland echotexture is heterogeneous. Thyroid vascularity is normal. Isthmus: 0.1 cm in maximum AP dimension. Estimated total number of nodules greater than or equal to 1 cm: 0. Shell Grader nodules are described as follows: 1. Location: Mid to upper pole right lobe. Size: 0.7 x 0.6 x 0.7 cm, volume 0.2 mL. Nodule characteristics: Composition: Solid (2). Echogenicity: Isoechoic (1). Shape: Not taller than wide (0). Margins: Ill-defined (0). Echogenic Foci: Macrocalcifications (1). ACR TI-RADS total points: 4 ACR TI-RADS category: 4 2. Location: Lower pole right lobe. Size: 0.6 x 0.5 x 0.7 cm, volume 0.1 mL. Nodule characteristics: Composition: Solid (2). Echogenicity: Isoechoic (1). Shape: Not taller than wide (0). Margins: Smooth (0). Echogenic Foci: None (0). ACR TI-RADS total points: 3 ACR TI-RADS category: 3 NODES: No lymphadenopathy is seen in the tissue surrounding the thyroid gland. US/US thyroid IMPRESSION: ACR TI-RADS Category 3 and 4, right thyroid lobe. ACR TI-RADS RECOMMENDATION REFERENCE: Ultrasound-guided fine-needle aspiration, followup ultrasound, no further follow up. * TR1 (0 point) and TR2 (2 points): No FNA or follow up. * TR3 (3 points): FNA if more than or equal to 2.5 cm in maximum dimension, followup ultrasound in 1, 3 and 5 years if 1.5 to 2.4 cm in maximum dimension. * TR4 (4-6 points): FNA if more than or equal to 1.5 cm in maximum dimension, followup ultrasound in 1, 2, 3 and 5 years if 1 to 1.4 cm in maximum dimension. * TR5 (more than or equal to 7 points): FNA if more than or equal to 1 cm in maximum dimension, followup ultrasound every year for 5 years if 0.5 to 0.9 cm in maximum dimension. * TR3, TR4 or TR5 nodules that are below the size threshold for followup receive no follow up. Electronically signed by: Natanael Hughes MD 01/14/2025 11:21 AM [facility]
--- OUTSIDE RECORDS SUMMARY | 2025-01-14 17:33 | XMS_ITS | Encounter Summary ---
Author Organization [employer] Address [address] [facility] 7t [place] [address] Care Team Providers Care News Camera Operator Name Role Phone Levy Rivera MD Primary Care Prov ider Encounter Details Date Type Department Care Team ([facility] st Contact Info) Description 10/31/2024 Orders Only [facility]S [address] [place], [place] [phone] Levy Rivera MD [address] [place], [place] [phone] Social History Tobacco Use Types Packs/Day Years [...] Care Team (Late st Contact Info) Description 03/12/2025 11:00 AM EST Office Visit [facility] [address] [place] [address] Amara Busch, OD [address] [place] [address] documented as of this encounter Visit Diagnoses Not on filedocumented in this encounter Additional Health Concerns Assessment Noted Time PHQ-9 Depression Total Score: 2 06/07/19 25 2:18 PM EDT documented as of this encounter Care Teams News Camera Operator Relationship Specialty Start Date End Date Levy Rivera MD [address] [place] [address] PCP - General Internal Medicine 06/06/24 documented as of this encounter
--- OUTSIDE RECORDS SUMMARY | 2025-01-14 17:33 | XMS_ITS | Encounter Summary ---
Author Organization [employer] Address [address] [facility] 7t [place] [address] Care Team Providers Care Senior Courtroom Clerk Name Role Phone Levy Rivera MD Primary Care Prov ider Encounter Details Date Type Department Care Team ([facility] st Contact Info) Description 12/20/2024 Orders Only [facility] MED [facility] PEDS [address] [place], [place] [phone] Levy Rivera MD [address] [place], [place] [phone] Social History Tobacco Use Types Packs/Day Years [...] Description 03/12/2025 11:00 AM EST Office Visit [facility] OPT[facility] [address] [place] [address] Amara Busch, OD [address] [place] [address] documented as of this encounter Visit Diagnoses Not on filedocumented in this encounter Additional Health Concerns Assessment Noted Time PHQ-9 Depression Total Score: 2 06/07/19 25 2:18 PM EDT documented as of this encounter Care Teams Senior Courtroom Clerk Relationship Specialty Start Date End Date Levy Rivera MD [address] [place] [address] PCP - General Internal Medicine 06/06/24 documented as of this encounter
--- OUTSIDE RECORDS SUMMARY | 2025-01-14 17:33 | XMS_ITS | Encounter Summary ---
Author Organization [employer] Address [address] [place] [address] 7 [place] [address] Care Team Providers Care Interline Clerk Name Role Phone Levy Rivera MD Primary Care Prov ider Reason for Visit * Reason Onset Date Comments Medication Question 10/30/2024 Encounter Details Date Type Department Care Team ([facility] st Contact Info) Description 10/30/2024 Telephone C [facility] [address] [place], [place] [phone] Levy Rivera MD [address] [place] [address] Medication Question Social History Tobacco Use Types [...] the apt. Any questions contact pt at [phone] documented in this encounter Plan of Treatment Upcoming Encounters Date Type Department Care Team (Late st Contact Info) Description 03/12/2025 11:00 AM EST Office Visit [facility] OPT[facility] [address] [place] [address] TarAmara correia, OD [address] [place] [address] documented as of this encounter Visit Diagnoses Not on filedocumented in this encounter Additional Health Concerns Assessment Noted Time PHQ-9 Depression Total Score: 2 06/07/19 25 2:18 PM EDT documented as of this encounter Care Teams Interline Clerk Relationship Specialty Start Date End Date Levy Rivera MD [address] [place] [phone] PCP - General Internal Medicine 06/06/24 documented as of this encounter
--- OUTSIDE RECORDS SUMMARY | 2025-01-14 17:33 | XMS_ITS | Clinical Summary ---
Author Organization [employer] Address [address] [place] [address] Care Team Providers Care Stallion Manager Name Role Phone Levy Rivera MD [...] wheezing. Active celecoxib (CeleBREX) 200 MG capsule TAKE ONE CAPSULE TWICE DAILY 60 capsule 2 11/26/2024 Active levothyroxine (Synthroid) 112 MCG tablet Take 1 tablet (112 mcg) by mouth before breakfast. 30 tablet 11 01/11/2025 12:08 PM EST 12/03/2024 Active Active Problems Problem Noted Date Diagnosed [...] due Primary hypertension 06/06/2024 Assessment & Plan (12/03/2024 11:03 AM EDT): Controlled, keep low sodium diet and exercise as tolerated, keep blood pressure log Assessment & Plan (10/30/2024 12:37 PM EDT): [...] ordered Acquired hypothyroidism 06/06/2024 Assessment & Plan (12/03/2024 11:04 AM EDT): Will lower levothyroxine, repeat in 6-8 weeks, Assessment & Plan (10/30/2024 12:38 PM EDT): [...] Encounters Date Type Department Care Team Description 12/20/2024 Orders Only [facility] [address] [place] [address] Levy Rivera MD 12/03/2024 10:30 AM EDT Telemedicine [facility] [address] [place] [address] Levy Rivera MD Acquired hypothyroidism (Primary Dx); Dietary counseling; Exercise counseling; Primary hypertension 12/03/2024 Travel 11/24/2024 Refill [facility] [address] [place] [address] Cori Ramos MD 11/07/2024 Telephone [facility] [address] [place] [address] Levy Rivera MD Referral 11/02/2024 Orders Only [facility] [address] [place] [address] Levy Rivera MD 10/31/2024 Orders Only [facility] [address] [place] [address] Levy Rivera MD 10/30/2024 11:30 AM EDT Office Visit [facility] [address] [place] [address] Levy Rivera MD Acquired hypothyroidism (Primary Dx); Primary hypertension; Primary insomnia 10/30/2024 Telephone [facility] [address] [place] [address] Levy Rivera MD Medication Question 10/30/2024 Travel from Last 3 Months Immunizations Immunization Administration Dates Next Due Pneumococcal Conjugate PCV 20 12/03/2024 Tdap 07/17/2024 Family History Medical History Relation [...] the past 12 months, has t he [employer], gas, oil or water company threatened to [...] Sign Reading Time Taken Comments Blood Pressure 130/78 12/03/2024 10:34 AM EDT Pulse 68 10/30/2024 11:30 AM [...] Description 03/12/2025 11:00 AM EST Office Visit [facility] [address] [place] [address] Amara Busch, OD [address] [place] [address] Health Maintenance Due Date Last Done Comments CT Colonography 1960 Colonoscopy 1960 Colorectal Cancer Screening 1960 FIT DNA/Cologuard 1960 FIT 1960 FOBT 1960 Sigmoidoscopy 1960 Mammogram 2001 RSV Patients and Patients Aged 60 years or older (1 - Risk 50-74 years 1-dose series) 2011 Zoster Vaccines (1 of 2) 2011 COVID-19 Vaccine (1 - 2024-2 6 season) 2024 Influenza Vaccine (#1) 2024 Alcohol/Substance Use Screening 06/06/2025 06/06/2024 Depression Screening 06/06/2025 06/06/2024, 06/06/2024 SDOH Screening 06/06/2025 06/06/2024 Tobacco Screening 08/02/2025 08/02/2024 Diabetes: Hemoglobin A1C 08/31/2025 08/31/2024 Disability Screening 12/03/2025 12/03/2024 Pap Smear 07/18/2027 07/17/2024 Cervical Cancer Screening 07/17/2029 HPV/Cotest 07/17/2029 07/17/2024 Lipid Panel 08/31/2029 08/31/2024 DTaP/Tdap/Td Vaccines (2 - T d or Tdap) 07/17/2034 07/17/2024 HIV Screening Completed 08/31/2024 Hepatitis C Screening Completed 08/31/2024 Pneumococcal Vaccine: 50+ Years Completed 12/03/2024 HIB Vaccines Aged Out No longer eligi [...] Procedure Name Priority Date/Time Associated Diagnosis Comments US THYROID Routine 01/14/2025 10:46 AM EST Acquired hypothyroidism T4, FREE Routine 11/02/2024 8:56 AM EDT TSH W/REFLEX TO FT4 Routine 11/02/2024 8 :56 AM EDT Acquired hypothyroidism HEPATITIS C AB W/REFL TO HCV RNA, [...] Encounter for medical examination to establish care HPV DNA, LOW/HIGH RISK Routine 07/17/2024 9:30 AM EDT Cervical cancer screening PAP SMEAR Routine 07/17/2024 9:30 AM EDT Cervical cancer screening from Last 3 Months or Most Recently Relevant to Health Maintenance Results * US Thyroid (01/14/2025 10:46 AM EST) Anatomical Region Laterality Modality Head, Neck Ultrasound 01/14/2025 10:4 6 AM EST Narrative 01/14/2025 11:24 AM EST [address] [address] Ultrasound Report Signed Patient: Kate Hutchison MR#: [id number] : 1960 Acct:[id number] Age/Sex: 64 / F ADM Date: 01/14/25 Loc: HO.US Attending Dr: Levy Mckinley MD Ordering Physician: Levy Rivera MD Date of Service: 01/14/25 Procedure(s): US thyroid Accession Number(s): [id number] cc: Levy Rivera MD Reason for Exam: hypothyroidism EXAMINATION: US THYROID CLINICAL INFORMATION: Hypothyroidism. COMPARISON: None available. TECHNIQUE: Linear transducer grayscale and color Doppler examination with attention to the region of the thyroid. FINDINGS: SIZE: Measurements of the thyroid lobes and nodules are given in sagittal, anteroposterior and transverse dimensions respectively. Right Thyroid Lobe: 3.0 x 1.3 x 1.1 cm, volume 2.3 mL. Parenchyma: The gland echotexture is heterogeneous. Thyroid vascularity is normal. Left Thyroid Lobe: 2.4 x 0.7 x 0.9 cm, volume 0.8 mL. Parenchyma: The gland echotexture is heterogeneous. Thyroid vascularity is normal. Isthmus: 0.1 cm in maximum AP dimension. Estimated total number of nodules greater than or equal to 1 cm: 0. Catalyst Concentration Operator nodules are described as follows: 1. Location: Mid to upper pole right lobe. Size: 0.7 x 0.6 x 0.7 cm, volume 0.2 mL. Nodule characteristics: Composition: Solid (2). Echogenicity: Isoechoic (1). Shape: Not taller than wide (0). Margins: Ill-defined (0). Echogenic Foci: Macrocalcifications (1). ACR TI-RADS total points: 4 ACR TI-RADS category: 4 2. Location: Lower pole right lobe. Size: 0.6 x 0.5 x 0.7 cm, volume 0.1 mL. Nodule characteristics: Composition: Solid (2). Echogenicity: Isoechoic (1). Shape: Not taller than wide (0). Margins: Smooth (0). Echogenic Foci: None (0). ACR TI-RADS total points: 3 ACR TI-RADS category: 3 NODES: No lymphadenopathy is seen in the tissue surrounding the thyroid gland. US/US thyroid IMPRESSION: ACR TI-RADS Category 3 and 4, right thyroid lobe. ACR TI-RADS RECOMMENDATION REFERENCE: Ultrasound-guided fine-needle aspiration, followup ultrasound, no further follow up. * TR1 (0 point) and TR2 (2 points): No FNA or follow up. * TR3 (3 points): FNA if more than or equal to 2.5 cm in maximum dimension, followup ultrasound in 1, 3 and 5 years if 1.5 to 2.4 cm in maximum dimension. * TR4 (4-6 points): FNA if more than or equal to 1.5 cm in maximum dimension, followup ultrasound in 1, 2, 3 and 5 years if 1 to 1.4 cm in maximum dimension. * TR5 (more than or equal to 7 points): FNA if more than or equal to 1 cm in maximum dimension, followup ultrasound every year for 5 years if 0.5 to 0.9 cm in maximum dimension. * TR3, TR4 or TR5 nodules that are below the size threshold for followup receive no follow up. Electronically signed by: Natanael Hughes MD 01/14/2025 11:21 AM [facility] Dictated By: Natanael Crowell MD Signed By: <Electronically signed by Natanael Fish MD in OV> 01/14/25 1121 DD/ 1046 TD/TT: 01/14/[address] Roller Engineer: Procedure Note Donotuseinterpreter, Image - 01/14/2025 [place] [address] Ultrasound Report Signed Patient: Kate Hutchison#: [id number] : 1960cct:[id number] Age/Sex: 64 / FADM Date: 01/14/25 Loc: HO.US Attending Dr: Levy Mckinley MD Ordering Physician: Levy Rivera MD Date of Service: 01/14/25 Procedure(s): US thyroid Accession Number(s): [id number] cc: Levy Rivera MD Reason for Exam: hypothyroidism EXAMINATION: US THYROID CLINICAL INFORMATION: Hypothyroidism. COMPARISON: None available. TECHNIQUE: Linear transducer grayscale and color Doppler examination with attention to the region of the thyroid. FINDINGS: SIZE: Measurements of the thyroid lobes and nodules are given in sagittal, anteroposterior and transverse dimensions respectively. Right Thyroid Lobe: 3.0 x 1.3 x 1.1 cm, volume 2.3 mL. Parenchyma: The gland echotexture is heterogeneous. Thyroid vascularity is normal. Left Thyroid Lobe: 2.4 x 0.7 x 0.9 cm, volume 0.8 mL. Parenchyma: The gland echotexture is heterogeneous. Thyroid vascularity is normal. Isthmus: 0.1 cm in maximum AP dimension. Estimated total number of nodules greater than or equal to 1 cm: 0. Catalyst Concentration Operator nodules are described as follows: 1. Location: Mid to upper pole right lobe. Size: 0.7 x 0.6 x 0.7 cm, volume 0.2 mL. Nodule characteristics: Composition: Solid (2). Echogenicity: Isoechoic (1). Shape: Not taller than wide (0). Margins: Ill-defined (0). Echogenic Foci: Macrocalcifications (1). ACR TI-RADS total points: 4 ACR TI-RADS category: 4 2. Location: Lower pole right lobe. Size: 0.6 x 0.5 x 0.7 cm, volume 0.1 mL. Nodule characteristics: Composition: Solid (2). Echogenicity: Isoechoic (1). Shape: Not taller than wide (0). Margins: Smooth (0). Echogenic Foci: None (0). ACR TI-RADS total points: 3 ACR TI-RADS category: 3 NODES: No lymphadenopathy is seen in the tissue surrounding the thyroid gland. US/US thyroid IMPRESSION: ACR TI-RADS Category 3 and 4, right thyroid lobe. ACR TI-RADS RECOMMENDATION REFERENCE: Ultrasound-guided fine-needle aspiration, followup ultrasound, no further follow up. * TR1 (0 point) and TR2 (2 points): No FNA or follow up. * TR3 (3 points): FNA if more than or equal to 2.5 cm in maximum dimension, followup ultrasound in 1, 3 and 5 years if 1.5 to 2.4 cm in maximum dimension. * TR4 (4-6 points): FNA if more than or equal to 1.5 cm in maximum dimension, followup ultrasound in 1, 2, 3 and 5 years if 1 to 1.4 cm in maximum dimension. * TR5 (more than or equal to 7 points): FNA if more than or equal to 1 cm in maximum dimension, followup ultrasound every year for 5 years if 0.5 to 0.9 cm in maximum dimension. * TR3, TR4 or TR5 nodules that are below the size threshold for followup receive no follow up. Electronically signed by: Natanael Hughes MD 01/14/2025 11:21 AM [facility] Dictated By: Natanael Crowell MD Signed By: <Electronically signed by Natanael Fish MDin OV> 01/14/25 1121 DD/ 1046 TD/TT: 01/14/[address] Roller Engineer: us Levy Mckinley MD IMG US PROCEDURES Final Result * (ABNORMAL) TSH W/Reflex to FT4 (11/02/2024 8:56 AM EDT) TSH reflex Free T4 0.01(L) 0.32 - 4.0 uIU/mL [facility] Blood Venous blood specimen / Unknown 11/02/2024 8:56 AM EDT 11/02/2024 8:56 AM EDT Levy Mckinley MD LAB BLOOD ORDERABL ES Final Result Performing Organization Address City/[facility]/ZIP Co de Phone Number [facility] [address] [place] [phone] * T4, Free (11/02/2024 8:56 AM EDT) Free T4 (Free Thyroxine) 1.24 0.71 - 1.85 ng/dL [facility] 11/02/2024 8:56 AM EDT 11/02/2024 8:56 AM EDT Levy Mckinley MD LAB BLOOD ORDERABL ES Final Result [facility] [address] [place] [phone] * Hepatitis C Antibody with Reflex to HCV, RNA, Quantitative, Real-Time PCR (08/31/2024 10:08 AM EDT) Pathologist [facility] Hepatitis C Antibody Nonreactive Nonreactive [facility] Comment:Antibodies to HCV no t detected; does not exclude early acuteHCV infection. Blood Venous blood specimen / Unknown 08/31/2024 10:08 AM EDT 08/31/2024 1:50 PM EDT Levy Mckinley MD LAB BLOOD ORDERABL ES Final Result Performing Organization Address [facility] Co de Phone Number [facility] [address] [place] [phone] * HIV-1/2 Antigen and Antibodies, Fourth Generation, with Reflexes (08/31/2024 10:08 AM EDT) [facility] HIV AB/AG Nonreactive Nonreactive [facility] Comment:HIV-1 p24 Ag and/or HIV-1/HIV-2 Ab not detected.A test result that is nonreactive does not exclude thepossibility of exposure to or infection with HIV-1 and/orHIV-2. Nonreactive results in this assay for individualswith prior exposure to HIV-1 and/or HIV-2 may be due toantigen and antibody levels that are below the limit ofdetection of this assay.The [facility] HIV Ag/Ab Combo assay result andsupplemental assay results should be interpreted inconjunction with the patient's clinical presentation,history and other laboratory results. If the results areinconsistent with clinical evidence, additional testing issuggested to confirm the result. Blood Venous blood specimen / Unknown 08/31/2024 10:08 AM EDT 08/31/2024 1:50 PM EDT us Levy Mckinley MD LAB BLOOD ORDERABL ES Final Result Performing Organization Address [facility]/ZIP Co de Phone Number [facility] [address] [place] [phone] * Hemoglobin A1c (08/31/2024 10:08 AM EDT) Hemoglobin A1c 6.0 <6.0 % [facility] Comment:Hemoglobin A1C Refer ence Range Adults: 4.8 - 6.0 % Non diabetic: < 6.0 % Goal: < 7.0 %Additional Action Suggested: > 8.0 %Note: Hemoglobin A1c results are invalid for patients with abnormal amounts of HbF. Blood transfusions may impact the HbA1c concentration in the patient sample. Estimated Average Glucose 126 mg/dL [facility] Comment:eAG = Estimated ave rage glucose which is %A1C expressed asaverage glucose, using the formula of the Z6W-BgeanlyAgiswyw Glucose study (ADAG), Diabetes Care, Vol.31,#8,Sep. 2007 Blood Venous blood specimen / Unknown 08/31/2024 10:08 AM EDT 08/31/2024 1:50 PM EDT us Levy Mckinley MD LAB BLOOD ORDERABL ES Final Result [facility] [address] [place] [address] [phone] * Lipid Panel, Standard (08/31/2024 10:08 AM EDT) Triglycerides 96 <150 mg/dL [facility] Comment:Desirable Triglyceri de: less than 150 mg/dLBorderline High Triglyceride 150-199 mg/dLHigh Triglyceride: 200-499 mg/dLVery High Triglyceride: greater than or equal to 5OO mg/dL Cholesterol 137 <200 mg/dL [facility] Comment:Desirable Cholestero l: less than 200 mg/dLBorderline High Cholesterol: 200-239 mg/dLHigh Cholesterol: greater than 239 mg/dL LDL Cholesterol Calculated 69 <100 mg/dL [facility] Comment:Desirable LDL: less than 100 mg/dLNear Optimal/Above Optimal LDL: 110- 129 mg/dLBorderline High LDL: 130-159 mg/dLHigh LDL: 160-189 mg/dLVery High LDL: greater than or equal to 190 mg/dL HDL Cholesterol 49 >40 mg/dL [facility] Comment:Desirable HDL: great er than 40 mg/dL Note: This HDL assay may give artificially low results in patients with liver disease. Blood Venous blood specimen / Unknown 08/31/2024 10:08 AM EDT 08/31/2024 1:50 PM EDT us Levy Mckinley MD LAB BLOOD ORDERABL ES Final Result Performing Organization Address [facility] Co de Phone Number [facility] [address] [place] [phone] * HPV High Risk with Reflex to Subtypes (07/17/2024 9:30 AM EDT) HPV High Risk Negative Negative [facility] HPV Genotype 16 Negative Negative [facility] HPV Genotype 18 Negative Negative [facility] Comment:HPV testing performe d at [facility] (CLIA#[id number]), [address] [place] [address].Testing for HPV was performed using the Clem [...] MD LAB BLOOD ORDERABLES Final Re sult Performing Organization Address [facility]/ZIP Co de Phone Number [facility] [address] [place] [phone] * Pap Smear (07/17/2024 9:30 AM EDT) Swab (Vaginal Swab) 07/17/2024 9:30 AM EDT 07/17/2024 2:19 PM EDT [facility] - 07/20/2024 10:37 AM EDT ----- ------- Name: Kate Hutchison Age/Sex: 64/F : 1960 Unit#: [id number] Attend Dr: Re07/17/24 Status: PRE REF Location: [facility] Disch: ----- ------- SPEC : [id number] RECD: 07/17/24 STATUS: GABINO MURRAY NUM: [id number] COLLINS: 07/17/24 [facility] DR: Cori Ramos MD ENTERED: 07/17/24 SP TYPE: Pap [facility] DR: ORDERED: Pap Smear Interpretation Satisfactory for [...] will be performed at [facility] (CLIA #[id number]), [address] [place] [address]. Testing for HPV was performed using the [...] detected. All professional services are performed by [facility] ([address] [place] [address], [place] [address]; ; CLIA #[id number]). The PAP Test is a screening procedure [...] Ramos MD LAB CYTOLOGY ORDERABLES Final Result [facility] [address] [place] [address] [phone] from Last 3 Months or Most Recently Relevant to Health Maintenance Insurance [facility] Care Teams Stallion Manager Relationship Specialty Start Date End Date Levy Rivera MD [address] [place] [phone] PCP - General Internal Medicine 06/06/24
== END 2025-01-14 10:31 | disposition home or self-care (01) ==
LOC: HO.US 10:30
PROVIDERS: PCP Internal Medicine; Visit Provider Internal Medicine
DX: E03.9 Hypothyroidism, unspecified (principal)
CPT/HCPCS: 76536

== ENCOUNTER → 2025-01-14 10:34 | Outpatient (BNV) | payer OTHER, SELFPAY | PROVIDERS: PCP Internal Medicine; Visit Provider Radiology Diagnostic Radiology | DX: E03.9 Hypothyroidism, unspecified (principal) | CPT/HCPCS: 76536 ==

== ENCOUNTER 2025-01-24 10:44 | Outpatient (AMB) | payer OTHER, SELFPAY ==
--- NOTE | 2025-01-24 10:56 | MHC.OFFVIS ---
Vital Signs 01/24/25 11:00 Height 5 ft 2 in Weight 222 lb BMI 40.6 Intake Visit Reasons: Bilateral knee pain Intake Note: Kate is a 64 year old woman who presents with complaints of bilateral knee pains. The patient states that she has had cortisone injections in the past by another provider which gave her no relief. She has had Euflexxa viscosupplementation injections which gave her fairly good relief. She wishes to hold off on total knee replacement surgery for as long as possible. She has tried Tylenol and Celebrex as well as physical therapy exercises which gave her minimal relief. At this point her bilateral knee pains are interfering with her activities of daily living and her ability to sleep well through the night. Allergies No Known Allergies Allergy (Verified 01/24/25 11:00) Medication List - Last Reconciled 01/24/25 by Alonso Cohen MD celecoxib (Celebrex) 200 mg PO BID 2 weeks levothyroxine 125 mcg PO QAM losartan-hydrochlorothiazide 50-12.5 mg 1 tab PO DAILY PFS Medical History (Updated 10/18/24 @ 10:32 by CARRINGTON Romero) Osteoarthritis of right knee Osteoarthritis of left knee Social History Alcohol intake: never Patient Tobacco Use Status: Never used Tobacco Current occupational status: employed Physical Exam Vital Signs: BMI result Body Mass Index 40.6 Extrem Other: Bilateral knee examination shows minimal effusions, palpable crepitus with range of motion, pain with range of motion, no instability Results Reviewed Results Reviewed: X-rays of the patient's bilateral knees taken previously show joint space narrowing, subchondral sclerosis, no acute bony abnormalities Assessment & Plan Assessment & Plan (1) Pain in both knees: Code(s): M25.561 - Pain in right knee; M25.562 - Pain in left knee (2) Osteoarthritis of left knee: Code(s): M17.12 - Unilateral primary osteoarthritis, left knee Category: Medical (3) Osteoarthritis of right knee: Code(s): M17.11 - Unilateral primary osteoarthritis, right knee Category: Medical Plan Ms. Amy Belcher presents with bilateral knee pains due to osteoarthritis. I had a lengthy discussion with the patient regarding the treatment options. She wishes to hold off on total knee replacement surgery for as long as possible. I agree with this plan. I will see if the patient's insurance company will cover a another series of Euflexxa viscosupplementation injections for both of her knees. I will see her back once the injections are approved. Feel free to call me at any time should questions regarding her orthopedic arise. I spent 20 minutes in reviewing the patient's records and imaging studies, seeing the patient and documenting in the medical record. Coding Level of Care Code Est Pt Level 3 (43337) Add On Problem Visit Only Diagnoses Pain in both knees M25.561; M25.562 Osteoarthritis of left knee M17.12 Osteoarthritis of right knee M17.11
[2025-01-24 11:00] VITALS: BMI 40.6
== END 2025-01-24 11:15 | disposition home or self-care (01) ==
LOC: HO.HOS 10:45
PROVIDERS: PCP Internal Medicine; Visit Provider Orthopaedic Surgery
DX: M25.561 Pain in right knee (principal); M25.562 Pain in left knee; M17.0 Bilateral primary osteoarthritis of knee
CPT/HCPCS: 99213; G2211